=== PATIENT | female | born 1990 | race Caucasian/White ===

== ENCOUNTER 2016-07-30 10:49 | Emergency (ER) | payer OTHER ==
[2016-07-30] MEDS ORDERED: predniSONE TAB* 20 MG PO ONE (11:11)
[2016-07-30] MEDS ORDERED: diPHENhydraMINE PO* 50 MG PO ONE (11:11)
[2016-07-30 11:12] VITALS: BP 128/87
--- NOTE | 2016-07-30 11:19 | UC ---
Allergic Reaction HPI - HPI Summary HPI Summary: PT WOKE UP THIS MORNING WITH ITCHY BUMPY RASH ON CHEST AND FACE THAT HAS NOW RESOLVED. LEFT LOWER LIP FEELS NUMB BUT IS NOT SWOLLEN. NO FEVER. FELT SOME CHEST TIGHTNESS WHICH WAS IMPROVED AFTER USING HER INHALER BUT DENIES ANY ACTUAL RESPIRATORY DISTRESS. ATE AT [employer] LAST NIGHT BUT NO NEW FOODS OR OTHER EXPOSURES SHE IS AWARE OF. RECENTLY HAD DOSE OF NEURONTIN INCREASED TO ADD A PRN DAYTIME DOSE WHICH SHE DID TAKE YESTERDAY. - History of Current Complaint Stated Complaint: RASH SOB LIP NUMB Time Seen by Provider: 07/30/16 10:57 Hx Obtained From: Patient Hx Last Menstrual Period: April 13, 2016 Onset/Duration: Sudden Onset, Lasting Hours, Still Present - BUT IMPROVED Severity Initially: Moderate Severity Currently: Mild Pain Intensity: 0 Pain Scale Used: 0-10 Numeric Character: Pruritus, Hives Aggrevating Factor(s): Nothing Alleviating Factor(s): Other - SPONTANEOUS IMPROVEMENT Associated Signs And Symptoms: Positive: Negative - Allergies/Home Medications Allergies/Adverse Reactions: Allergies Allergy/AdvReac Type Severity Reaction Status Date / Time Lamotrigine [From Lamictal] Allergy Intermediate Rash Verified 03/06/16 13:00 ROBITUSSIN WITH CODEINE Allergy Severe Itching Uncoded 03/06/16 13:00 Home Medications: Home Medications Aspirin [Aspirin Adult Low Strengt] 81 mg PO DAILY 07/30/16 [History Confirmed 07/30/16] Folic Acid TAB* [Folvite TAB*] 1 mg PO DAILY 07/30/16 [History Confirmed ] PMH/Surg Hx/FS Hx/Imm Hx Endocrine History Of: Reports: Diabetes, Thyroid Disease, Hypothyroidism Denies: Hyperthyroidism, Dyslipidemia Cardiovascular History Of: Denies: Cardiac Disorders, Hypertension, Pacemaker/ICD, Myocardial Infarction , Congestive Heart Failure, Atrial Fibrillation, Deep Vein Thrombosis, Bleeding Disorders Respiratory History Of: Reports: Asthma - She does not use Proair which she has. Denies: COPD, Bronchitis, Pneumonia, Pulmonary Embolism GI/ History Of: Reports: Gastroesophageal Reflux, Ulcer - Gastric ulcer 4 years ago. Denies: Gastrointestinal Bleed, Gall Bladder Disease, Kidney Stones, Diverticulitis, Renal Disease, Urosepsis Neurological History Of: Denies: TIA, CVA, Dementia, Seizures, Migraine Psychological History Of: Reports: Anxiety, Depression - BIPOLAR DEPRESSION, Bipolar Disorder Denies: Schizophrenia, Post Traumatic Stress Disorder Cancer History Of: Denies: Lung Cancer, Colorectal Cancer, Breast Cancer, Prostate Cancer, Cervical Cancer Other History Of: Negative For: HIV, Hepatitis B, Hepatitis C, Anticoagulant Therapy - Surgical History Surgical History: Yes Surgery Procedure, Year, and Place: RIGHT Carpal Tunnel Surgery 09/2011 [facility]. RT THUMB Tendonitis 2004 [facility]. RT THUMB Tendonitis 2005 [facility]. Cyst removed left 2nd finger Feb 2015. Ex Lap - Family History Known Family History: Positive: Diabetes Negative: Cardiac Disease, Hypertension - Social History Alcohol Use: Occasionally Alcohol Amount: 1x month Substance Use Type: None Smoking Status (MU): Former Smoker Type: Cigarettes Amount Used/How Often: 4 CIGARETTES/DAY FOR 2 YRS Length of Time of Smoking/Using Tobacco: 2 YRS Have You Smoked in the Last Year: No When Did the Patient Quit Smoking/Using Tobacco: 2013 Household Exposure Type: Cigarettes - Immunization History Most Recent Influenza Vaccination: Most Recent Tetanus Shot: unknown Most Recent Pneumonia Vaccination: never Vaccination Up to Date: Yes Review of Systems Constitutional: Negative Skin: Rash Respiratory: Negative Cardiovascular: Negative Gastrointestinal: Negative All Other Systems Reviewed And Are Negative: Yes Physical Exam Triage Information Reviewed: Yes Appearance: Well-Appearing, No Pain Distress, Well-Nourished Vital Signs: Initial Vital Signs Pulse 95 07/30/16 11:05 Resp 16 07/30/16 11:05 BP 128/87 07/30/16 11:05 Pulse Ox 96 07/30/16 11:05 Vital Signs Reviewed: Yes Eyes: Positive: Conjunctiva Clear ENT: Positive: Hearing grossly normal, Pharynx normal, TMs normal, Other: - NO TONGUE OR LIP SWELLING Neck: Positive: Supple Respiratory Exam: Normal Cardiovascular Exam: Normal Abdomen Description: Positive: Soft Musculoskeletal: Positive: No Edema Psychological: Positive: Age Appropriate Behavior Skin: Negative: rashes Allergic Reaction Course/Dx - Differential Dx/Diagnosis Provider Diagnoses: ALLERGIC REACTION Discharge - Discharge Plan Condition: Stable Disposition: HOME Prescriptions: predniSONE TAB* [Deltasone TAB*] 50 mg PO DAILY #4 tab Patient Education Materials: General Allergic Reaction (ED) Forms: *Work Release Referrals: Tru Bran MD [Medical Doctor] - If Needed Additional Instructions: UNCERTAIN CAUSE OF YOUR ALLERGIC REACTION TODAY. POSSIBLY COULD BE NEURONTIN YOU CAN DEVELOP ALLERGY AT ANY TIME. DO NOT STOP THIS MEDICATION ABRUPTLY. IF YOU HAVE RECURRENT SYMPTOMS GO TO THE ER WITHOUT FAIL. CONSIDER EVALUATION BY AN COUNTY RECORDS MANAGEMENT OFFICER IF YOU HAVE RECURRENT SYMPTOMS. TAKE OTC ANTIHISTAMINE DAILY (CLARITIN (LORATADINE), ZYRTEC (CETIRIZINE) OR SHONA (FEXOFENADINE) IN THE MORNING, BENADRYL AT NIGHT) [facility] Address: [facility] [address], [place] [address] [facility] [address] [place] [address] [address] [place], [place] [address]
== END 2016-07-30 11:29 | disposition home or self-care (01) ==
LOC: UCEAST 10:49
DX: T78.40XA Allergy, unspecified, initial encounter (principal); X58.XXXA Exposure to other specified factors, initial encounter; Z87.891 Personal history of nicotine dependence
CPT/HCPCS: 99212; A9270-GY; G0463; J7512

== ENCOUNTER 2016-07-30 21:36 | Emergency (ER) | payer OTHER ==
--- NOTE | 2016-07-30 22:35 | RAD ---
INDICATION: Chest pain COMPARISON: May 20, 2012 TECHNIQUE: PA and lateral dual-energy views were obtained. FINDINGS: Bones/Soft Tissues: There are no acute bony findings. Cardiomediastinal: The cardiomediastinal silhouette is normal. Lungs: There are no infiltrates. Pleura: There are no pleural effusions. Other: None IMPRESSION: NO ACTIVE DISEASE.
--- NOTE | 2016-07-30 22:52 | ED ---
Babar Crews Billy, scribed for Edward Jeffery MD on 07/30/16 at 2149 . Shortness of Breath - HPI Summary HPI Summary: Patient is a 26 year-old female coming to [facility] from [facility] presenting with intermittent SOB starting approximately 1 hour ago. Patient also states that she has midsternal chest pain and back pain. Her symptoms began at rest while lying down, without any known cause. Pain is unaffected with deep breaths, although her SOB is worse when talking. She has had similar chest pain in the past. - History of Current Complaint Chief Complaint: EDShortnessOfBreath Time Seen by Provider: 07/30/16 21:43 Hx Obtained From: Patient Onset/Duration: Gradual Onset, Lasting Hours, Still Present Timing: Intermittent Episodes Lasting: Current Severity: Moderate Dyspnea At: Rest Aggrevating Factors: Recumbent Position Alleviating Factors: Nothing Associated Signs & Symptoms: Chest Pain Unrelated to Cough - Allergy/Home Medications Allergies/Adverse Reactions: Allergies Allergy/AdvReac Type Severity Reaction Status Date / Time Lamotrigine [From Lamictal] Allergy Intermediate Rash Verified 03/06/16 13:00 ROBITUSSIN WITH CODEINE Allergy Severe Itching Uncoded 03/06/16 13:00 PMH/Surg Hx/FS Hx/Imm Hx Endocrine/Hematology History: Reports: Hx Diabetes, Hx Thyroid Disease Denies: Hx Anticoagulant Therapy Cardiovascular History: Denies: Hx Congestive Heart Failure, Hx Deep Vein Thrombosis, Hx Hypertension , Hx Myocardial Infarction, Hx Pacemaker/ICD Respiratory History: Reports: Hx Asthma - She does not use Proair which she has. Denies: Hx Chronic Obstructive Pulmonary Disease (COPD), Hx Lung Cancer, Hx Pneumonia, Hx Pulmonary Embolism GI History: Reports: Hx Ulcer - Gastric ulcer 4 years ago. Denies: Hx Gall Bladder Disease, Hx Gastrointestinal Bleed, Hx Urosepsis History: Denies: Hx Kidney Stones, Hx Renal Disease Musculoskeletal History: Reports: Other Musculoskeletal History - HX OF LEFT ANKLE FX 2010 Sensory History: Reports: Hx Contacts or Glasses - BOTH, Denies: Hx Hearing Aid Opthamlomology History: Reports: Hx Contacts or Glasses - BOTH, Neurological History: Reports: Hx Headaches - FREQUENT Denies: Hx Dementia, Hx Migraine, Hx Seizures, Hx Transient Ischemic Attacks (TIA) Psychiatric History: Reports: Hx Anxiety, Hx Depression - BIPOLAR DEPRESSION, Hx Bipolar Disorder Denies: Hx Panic Disorder, Hx Schizophrenia - Surgical History Surgery Procedure, Year, and Place: RIGHT Carpal Tunnel Surgery 09/2011 [facility]. RT THUMB Tendonitis 2004 [facility]. RT THUMB Tendonitis 2005 [facility]. Cyst removed left 2nd finger Feb 2015. Ex Lap Hx Anesthesia Reactions: No Infectious Disease History: No Infectious Disease History: Denies: Hx Clostridium Difficile, Hx Hepatitis, Hx Human Immunodeficiency Virus (HIV), Hx of Known/Suspected MRSA, Hx Shingles, Hx Tuberculosis, Hx Known/ Suspected VRE, Hx Known/Suspected VRSA, History Other Infectious Disease, Traveled Outside the [place] in Last 30 Days - Family History Known Family History: Positive: Diabetes Negative: Cardiac Disease, Hypertension - Social History Alcohol Use: Occasionally Alcohol Amount: 1x month Substance Use Type: Reports: None Smoking Status (MU): Former Smoker Type: Cigarettes Amount Used/How Often: 4 CIGARETTES/DAY FOR 2 YRS Length of Time of Smoking/Using Tobacco: 2 YRS Have You Smoked in the Last Year: No Review of Systems Positive: Chest Pain Positive: Shortness Of Breath Positive: Other - back pain All Other Systems Reviewed And Are Negative: Yes Physical Exam Triage Information Reviewed: Yes Vital Signs On Initial Exam: Initial Vitals Temp Pulse Resp BP Pulse Ox 96.7 F 103 20 126/89 97 07/30/16 21:39 07/30/16 21:39 07/30/16 21:39 07/30/16 21:39 07/30/16 21:39 Vital Signs Reviewed: Yes Appearance: Positive: No Pain Distress, Obese Skin: Positive: Warm Eyes: Positive: JUNIOR ENT: Positive: Hearing grossly normal Neck: Positive: Supple Respiratory/Lung Sounds: Positive: Clear to Auscultation, Breath Sounds Present Cardiovascular: Positive: RRR Abdomen Description: Positive: Nontender, Soft Bowel Sounds: Positive: Present Musculoskeletal: Positive: Strength/ROM Intact Neurological: Positive: Sensory/Motor Intact, Alert, Oriented to Person Place, Time Psychiatric: Positive: Affect/Mood Appropriate Diagnostics - Vital Signs Vital Signs Temp Pulse Resp BP Pulse Ox 07/30/16 21:39 96.7 F 103 20 126/89 97 - Laboratory Lab Statement: Any lab studies that have been ordered have been reviewed, and results considered in the medical decision making process. - Radiology CXR Xray Interpretation: No Acute Changes Radiology Interpretation Completed By: Radiologist - EKG 2144 EKG Interpretation: NSR 89 bpm, no ST elevation Re-Evaluation - Re-Evaluation First Eval Change: Improved Course/Dx - Diagnoses Provider Diagnoses: Dyspnea Discharge - Discharge Plan Condition: Stable Disposition: HOME Patient Education Materials: Dyspnea (ED) Referrals: Tru Bran MD [Primary Care Provider] - The documentation as recorded by the Babar rasheed Billy accurately reflects the service I personally performed and the decisions made by me, Edward Jeffery MD.
[2016-07-30 23:04] VITALS: BP 116/79
== END 2016-07-30 23:04 | disposition home or self-care (01) ==
LOC: ED 21:36
DX: R06.00 Dyspnea, unspecified (principal); R07.9 Chest pain, unspecified; R06.02 Shortness of breath; Z87.891 Personal history of nicotine dependence; M54.9 Dorsalgia, unspecified
CPT/HCPCS: 71020; 93005; 99282

== ENCOUNTER 2016-09-08 02:17 | Emergency (ER) | payer OTHER ==
[2016-09-08] MEDS ORDERED: Ketorolac INJ* 60 MG/2 ML VIAL IM ONE (03:13)
--- NOTE | 2016-09-08 04:09 | ED ---
Babar Crews Billy, scribed for Edward Jeffery MD on 09/08/16 at 0309 . Back Pain - HPI Summary HPI Summary: Patient is a 26 y/o female coming to [facility] for evaluation of constant back pain for the last 6 hours. Severity 10/10. She denies any recent injury or trauma, and she states that the pain began suddenly, with no known cause. She has taken OTC pain medication and applied heating pads without improvement. Pain is worse with inspiration. Patient has a history of arthritis in the lower back, but she says the pain has never been this bad. - History of Current Complaint Chief Complaint: EDBackInjuryPain Stated Complaint: BACK PAIN Time Seen by Provider: 09/08/16 03:06 Hx Obtained From: Patient Hx Last Menstrual Period: April 13, 2016 Onset/Duration: Sudden Onset, Lasting Hours, Still Present Timing: Constant Back Pain Location: Is Discrete @ - low back Severity Initially: Moderate Severity Currently: Moderate Pain Intensity: 10 Pain Scale Used: 0-10 Numeric Alleviating Symptom(s): Nothing - Allergies/Home Medications Allergies/Adverse Reactions: Allergies Allergy/AdvReac Type Severity Reaction Status Date / Time Lamotrigine [From Lamictal] Allergy Intermediate Rash Verified 09/08/16 02:23 ROBITUSSIN WITH CODEINE Allergy Severe Itching Uncoded 09/08/16 02:23 PMH/Surg Hx/FS Hx/Imm Hx Endocrine/Hematology History: Reports: Hx Diabetes, Hx Thyroid Disease Denies: Hx Anticoagulant Therapy Cardiovascular History: Denies: Hx Congestive Heart Failure, Hx Deep Vein Thrombosis, Hx Hypertension , Hx Myocardial Infarction, Hx Pacemaker/ICD Respiratory History: Reports: Hx Asthma - She does not use Proair which she has. Denies: Hx Chronic Obstructive Pulmonary Disease (COPD), Hx Lung Cancer, Hx Pneumonia, Hx Pulmonary Embolism GI History: Reports: Hx Ulcer - Gastric ulcer 4 years ago. Denies: Hx Gall Bladder Disease, Hx Gastrointestinal Bleed, Hx Urosepsis History: Denies: Hx Kidney Stones, Hx Renal Disease Musculoskeletal History: Reports: Other Musculoskeletal History - HX OF LEFT ANKLE FX 2010 Sensory History: Reports: Hx Contacts or Glasses - BOTH, Denies: Hx Hearing Aid Opthamlomology History: Reports: Hx Contacts or Glasses - BOTH, Neurological History: Reports: Hx Headaches - FREQUENT Denies: Hx Dementia, Hx Migraine, Hx Seizures, Hx Transient Ischemic Attacks (TIA) Psychiatric History: Reports: Hx Anxiety, Hx Depression - BIPOLAR DEPRESSION, Hx Bipolar Disorder Denies: Hx Panic Disorder, Hx Schizophrenia - Surgical History Surgery Procedure, Year, and Place: RIGHT Carpal Tunnel Surgery 09/2011 [facility]. RT THUMB Tendonitis 2004 [facility]. RT THUMB Tendonitis 2005 [facility]. Cyst removed left 2nd finger Feb 2015. Ex Lap Hx Anesthesia Reactions: No Infectious Disease History: No Infectious Disease History: Denies: Hx Clostridium Difficile, Hx Hepatitis, Hx Human Immunodeficiency Virus (HIV), Hx of Known/Suspected MRSA, Hx Shingles, Hx Tuberculosis, Hx Known/ Suspected VRE, Hx Known/Suspected VRSA, History Other Infectious Disease, Traveled Outside the [place] in Last 30 Days - Family History Known Family History: Positive: Diabetes Negative: Cardiac Disease, Hypertension - Social History Alcohol Use: Occasionally Alcohol Amount: 1x month Substance Use Type: Reports: None Smoking Status (MU): Former Smoker Type: Cigarettes Amount Used/How Often: 4 CIGARETTES/DAY FOR 2 YRS Length of Time of Smoking/Using Tobacco: 2 YRS Have You Smoked in the Last Year: No Review of Systems Negative: Fever Positive: Other - back pain All Other Systems Reviewed And Are Negative: Yes Physical Exam Triage Information Reviewed: Yes Vital Signs On Initial Exam: Initial Vitals Temp Pulse Resp BP Pulse Ox 96.7 F 96 16 120/91 99 09/08/16 02:19 09/08/16 02:19 09/08/16 02:19 09/08/16 02:19 09/08/16 02:19 Vital Signs Reviewed: Yes Appearance: Positive: Pain Distress - mild discomfort, Thin Skin: Positive: Warm Head/Face: Positive: Normal Head/Face Inspection Eyes: Positive: JUNIOR ENT: Positive: Hearing grossly normal Neck: Positive: Supple, Nontender Respiratory/Lung Sounds: Positive: Breath Sounds Present Cardiovascular: Positive: RRR Abdomen Description: Positive: Nontender, Soft Bowel Sounds: Positive: Present Musculoskeletal: Positive: Strength/ROM Intact Neurological: Positive: Sensory/Motor Intact, Alert, Oriented to Person Place, Time Diagnostics - Vital Signs Vital Signs Temp Pulse Resp BP Pulse Ox 09/08/16 02:19 96.7 F 96 16 120/91 99 - Laboratory Lab Statement: Any lab studies that have been ordered have been reviewed, and results considered in the medical decision making process. - Radiology CXR Xray Interpretation: No Acute Changes Radiology Interpretation Completed By: ED Physician Re-Evaluation - Re-Evaluation First Eval Change: Improved Back Pain Course/Dx - Diagnoses Provider Diagnoses: Back pain Discharge - Discharge Plan Condition: Improved Disposition: HOME Patient Education Materials: Back Pain (ED) Referrals: Tru Bran MD [Primary Care Provider] - The documentation as recorded by the Babar rasheed Billy accurately reflects the service I personally performed and the decisions made by me, Edward Jeffery MD.
[2016-09-08 04:28] VITALS: BP 106/67
--- NOTE | 2016-09-08 07:52 | RAD ---
INDICATION: Pleuritic chest pain COMPARISON: Most recent comparison chest x-ray dated July 30, 2016 TECHNIQUE: PA and lateral views of the chest were obtained. FINDINGS: The heart and mediastinum are normal in size and contour. The lungs are grossly clear. There is no evidence of large pleural effusion. Visualized bones are normal for the patient's age. There is no radiographic evidence of free air beneath the diaphragm IMPRESSION: No radiographic evidence of acute cardiopulmonary disease.
== END 2016-09-08 04:26 | disposition home or self-care (01) ==
LOC: ED 02:17
DX: M54.5 Low back pain (principal); Z87.891 Personal history of nicotine dependence
CPT/HCPCS: 71020; 96372; 99282; J1885

== ENCOUNTER 2016-10-15 11:25 | Day surgery (SDC) | payer OTHER ==
[~2016-10-15 11:25] MED LIST: Buffered Lidocaine 1% SYRIN* 3 ML/SYR SYRINGE INTRADERM ONE; Famotidine IV* 10 MG/ML 2 ML (20 mg) IV ONE; Metoclopramide TAB* 10 MG PO ONE
[2016-10-15] MEDS ORDERED: Famotidine IV* 10 MG/ML 2 ML (20 mg) ONE (11:28)
[2016-10-15] MEDS ORDERED: Metoclopramide TAB* 10 MG ONE (11:28)
[2016-10-15 11:37] LABS: UR Preg Kit Lot# 6030156
[2016-10-15 11:38] LABS: Manual Entry Verification AS; UR Preg Internal Control QC Line Present
[2016-10-15] MEDS ORDERED: Lidocaine 2% PF * 5 ML VIAL ONE (14:11)
[2016-10-15] MEDS ORDERED: Dexamethasone IV* 4 MG/ML 1 ML (4 MG) ONE (14:11)
[2016-10-15] MEDS ORDERED: Ondansetron INJ* 2 MG/ML VIAL ONE (14:11)
[2016-10-15] MEDS ORDERED: Propofol* 10 MG/ML 20 ML BTL IV PUSH ONE (14:11)
[2016-10-15] MEDS ORDERED: KETAMINE HCL* 50 MG/ML 10 ML VIAL ONE (14:11)
[2016-10-15] MEDS ORDERED: fentaNYL* 50 MCG/ML 2 ML VIAL (100 MCG VIAL) ONE ×2 (14:11→15:47)
[2016-10-15] MEDS ORDERED: Midazolam* 1 MG/ML 5 ML VIAL (5 MG) ONE (14:11)
[2016-10-15] MEDS ORDERED: Lidocaine 4% TOPICAL* 50 ML TOP.SOLN ONE (14:15)
[2016-10-15] MEDS ORDERED: Oxymetazoline 0.05% NASAL SPR* 15 ML BTL ONE (14:15)
[2016-10-15] MEDS ORDERED: Gelatin ADSORBABLE (OPHTH)* OPHTH.FILM ONE (14:18)
[2016-10-15] MEDS ORDERED: Gelfoam 12-7 ADSORBABL SPONGE* 1 EA SPONGE ONE ×2 (14:18→15:12)
[2016-10-15] MEDS ORDERED: Lidocaine 2% EPI 1:200000 MPF* 20 ML VIAL ONE (14:22)
[2016-10-15] MEDS ORDERED: Ondansetron INJ* 2 MG/ML VIAL IV PRN (15:05)
[2016-10-15] MEDS ORDERED: oxyCODONE/Acetamin 5/325 MG* TAB PO PRN (15:05)
[2016-10-15] MEDS ORDERED: oxyCODONE/Acetamin 5/325 MG* TAB ONE (15:47)
[2016-10-15] MEDS: fentaNYL* 50 MCG/ML 2 ML VIAL (100 MCG VIAL) IV PRN ×2 (15:48→15:57)
[2016-10-15 16:54] VITALS: BP 119/80
--- NOTE | 2016-10-15 22:14 | OP ---
DATE OF OPERATION: 10/15/16 - [facility] DATE OF : 86 SURGEON: Anam Lewis MD ANESTHESIOLOGIST: Reese Bergeron MD ANESTHESIA: General PRE-OP DIAGNOSES: Chronic sinusitis; hypertrophied nasal turbinate; hugo bullosa, left side. POST-OP DIAGNOSES: Chronic sinusitis; hypertrophied nasal turbinate; hugo bullosa, left side. OPERATIVE PROCEDURE: Bilateral videoendoscopic maxillary antrostomy and left hugo bullosa resection. BRIEF HISTORY: This 26-year-old female with recurring chronic sinus symptoms, chronic sinusitis, markedly enlarged hugo bullosa, left side with narrowing bilaterally, elected for surgical management having failed medical management that had included nasal steroids. DESCRIPTION OF PROCEDURE: The patient was taken to the operating room. General anesthetic was given. The patient was intubated with LMA. Nose was decongested with Afrin placed pledgets. Subsequently, 2% Lidocaine with epinephrine was infiltrated in the middle turbinate on both sides, the uncinate region on both sides. We turned our attention to the left side. The uncinate process was identified after resecting the hugo bullosa. Once adequate resection, however, maintaining the medial surface of the turbinate, the antrostomy was enlarged and the microshaver was used to remove the antral opening uncinate region. Once this was adequately done, the enlargement of the antrum was carried out using microshaver. There was no evidence of any significant mucosal abnormality in the antrum. Gelfilm and Gelfoam was used as a spacer between the middle turbinate and lateral nasal wall. Right side was again similarly, uncinate process was removed and micro shaved away. The antrostomy was enlarged. Airway was packed with Gelfilm and Gelfoam as a spacer between middle turbinate lateral nasal value. The patient was then awakened, extubated, and sent to recovery room in stable condition. Instrument and sponge count correct. Blood loss minimal. [id number]/[facility] #: [id number] MTDD
== END 2016-10-15 16:54 | disposition home or self-care (01) ==
LOC: OR 11:25
PROVIDERS: ATTEND Otolaryngology
DX: J32.0 Chronic maxillary sinusitis (principal); J31.0 Chronic rhinitis; J34.3 Hypertrophy of nasal turbinates; G47.33 Obstructive sleep apnea (adult) (pediatric); E03.9 Hypothyroidism, unspecified; J45.909 Unspecified asthma, uncomplicated; E78.5 Hyperlipidemia, unspecified
CPT/HCPCS: 81025; A9270-GY; J1100; J2250; J2405; J2704; J3010

== ENCOUNTER 2016-10-16 17:23 | Emergency (ER) | payer OTHER ==
[2016-10-16 17:49] VITALS: BP 134/97
--- NOTE | 2016-10-16 18:29 | UC ---
Skin Complaint HPI - HPI Summary HPI Summary: had nasal surgery yesterday---today noticed a red area that was warm above her right breast on her chest wall---both of her upper arms feel warm and a firm tender area at 4:00 on right breast - History of Current Complaint Chief Complaint: UCRash Time Seen by Provider: 10/16/16 18:11 Stated Complaint: RASH Hx Obtained From: Patient Hx Last Menstrual Period: 10/02/16 ?: No Onset/Duration: Sudden Onset, Lasting Days - 1, Still Present Skin Exposure Onset/Duration: Days Ago - 1 day ago possibly to cardiac electrodes Timing: Constant Onset Severity: Moderate Current Severity: Moderate Pain Intensity: 3 Pain Scale Used: 0-10 Numeric Location: Discrete Character: Redness Aggravating: Nothing Alleviating: Nothing Related History: Possible Reaction to: Latex - Allergy/Home Medications Allergies/Adverse Reactions: Allergies Allergy/AdvReac Type Severity Reaction Status Date / Time Lamotrigine [From Lamictal] Allergy Intermediate Rash Verified 10/15/16 11:39 ROBITUSSIN WITH CODEINE Allergy Severe Itching Uncoded 10/15/16 11:39 Home Medications: Home Medications Acetaminophen-Caffeine [Excedrin Tension Headache 500-65 mg] 1 tab PO 10/16/16 [ History] Cetirizine* [ZyrTEC 10 MG TAB*] 10 mg PO DAILY 10/16/16 [History Confirmed 10/16] Fenofibrate [Tricor] 48 mg PO 10/16/16 [History] Lurasidone HCl [Latuda] 60 mg PO 10/16/16 [History] Review of Systems Constitutional: Negative Skin: Rash - as described Eyes: Negative ENT: Negative Respiratory: Negative Cardiovascular: Negative Gastrointestinal: Negative Genitourinary: Negative Motor: Negative Neurovascular: Negative Musculoskeletal: Negative Neurological: Negative Psychological: Negative All Other Systems Reviewed And Are Negative: Yes PMH/Surg Hx/FS Hx/Imm Hx Previously Healthy: No Endocrine History Of: Reports: Thyroid Disease - HYPOTHYROID, Hypothyroidism Denies: Diabetes - INSULIN RESISTANT TAKES METFORMIN, Hyperthyroidism, Dyslipidemia Cardiovascular History Of: Denies: Cardiac Disorders, Hypertension, Pacemaker/ICD, Myocardial Infarction , Congestive Heart Failure, Atrial Fibrillation, Deep Vein Thrombosis, Bleeding Disorders Respiratory History Of: Reports: Asthma - She does not use Proair which she has. Denies: COPD, Bronchitis, Pneumonia, Pulmonary Embolism GI/ History Of: Reports: Gastroesophageal Reflux, Ulcer - Gastric ulcer 4 years ago. Denies: Gastrointestinal Bleed, Gall Bladder Disease, Kidney Stones, Diverticulitis, Renal Disease, Urosepsis Neurological History Of: Denies: TIA, CVA, Dementia, Seizures, Migraine Psychological History Of: Reports: Anxiety, Depression - BIPOLAR DEPRESSION, Bipolar Disorder Denies: Schizophrenia, Post Traumatic Stress Disorder Cancer History Of: Denies: Lung Cancer, Colorectal Cancer, Breast Cancer, Prostate Cancer, Cervical Cancer Other History Of: Negative For: HIV, Hepatitis B, Hepatitis C, Anticoagulant Therapy - Surgical History Surgical History: Yes Surgery Procedure, Year, and Place: RIGHT Carpal Tunnel Surgery 09/2011 [facility]. RT THUMB Tendonitis 2004 [facility]. RT THUMB Tendonitis 2005 [facility]. Cyst removed left 2nd finger Feb 2015. Ex Lap, sinus surgery - Family History Known Family History: Positive: Diabetes Negative: Cardiac Disease, Hypertension - Social History Occupation: Unemployed Lives: With Family Alcohol Use: Occasionally Alcohol Amount: 1x month Substance Use Type: None Smoking Status (MU): Former Smoker Type: Cigarettes Amount Used/How Often: 1/2 ppd FOR 8YRS Length of Time of Smoking/Using Tobacco: 2 YRS Have You Smoked in the Last Year: No When Did the Patient Quit Smoking/Using Tobacco: 2012 Household Exposure Type: Cigarettes - Immunization History Most Recent Influenza Vaccination: Most Recent Tetanus Shot: unknown Most Recent Pneumonia Vaccination: never Vaccination Up to Date: Yes Physical Exam Triage Information Reviewed: Yes Appearance: Well-Appearing, No Pain Distress, Well-Nourished Vital Signs: Initial Vital Signs Temp 98.1 F 10/16/16 17:46 Pulse 90 10/16/16 17:46 Resp 18 10/16/16 17:46 BP 134/97 10/16/16 17:46 Pulse Ox 98 10/16/16 17:46 Vital Signs Reviewed: Yes Eye Exam: Normal Eyes: Positive: Conjunctiva Clear ENT Exam: Normal ENT: Positive: Normal ENT inspection, Hearing grossly normal, Pharynx normal, TMs normal. Negative: Nasal congestion, Nasal drainage, Tonsillar swelling, Tonsillar exudate, Trismus, Muffled/hoarse voice Dental Exam: Normal Neck exam: Normal Neck: Positive: Supple, Nontender, No Lymphadenopathy Respiratory Exam: Normal Respiratory: Positive: Chest non-tender, Lungs clear, Normal breath sounds, No respiratory distress, No accessory muscle use Cardiovascular Exam: Normal Cardiovascular: Positive: RRR, No Murmur, Pulses Normal, Brisk Capillary Refill Musculoskeletal Exam: Normal Musculoskeletal: Positive: Strength Intact, ROM Intact, No Edema Neurological Exam: Normal Neurological: Positive: Alert, Muscle Tone Normal Psychological Exam: Normal Skin Exam: Normal Skin: Positive: rashes - as described---pt reports it was not present yesterday Course/Dx - Course Course Of Treatment: Doxycycline, warm compress to breast follow with Dr. Burnette on Thursday return should sx worsen in any way - Differential Diagnoses - Skin Complaint Differential Diagnoses: Cellulitis, Contact Dermatitis, Local Allergic Reaction - Diagnoses Provider Diagnoses: Cellulitis/localized reaction Discharge - Discharge Plan Condition: Stable Disposition: HOME Prescriptions: DOXYcycline CAP(*) [DOXYcycline 100MG CAP(*)] 100 mg PO BID #20 cap Fluconazole [Diflucan 150 MG (NF)] 150 mg PO ONCE PRN #1 tab PRN Reason: vaginal yeast SX Patient Education Materials: Breast Mass (ED), Warm Compress or Soak (ED) Referrals: Gordo Kidd MD [Primary Care Provider] - 3 Days
== END 2016-10-16 18:33 | disposition home or self-care (01) ==
LOC: UCEAST 17:23
DX: N61.1 Abscess of the breast and nipple (principal); R21 Rash and other nonspecific skin eruption; E03.9 Hypothyroidism, unspecified; F31.9 Bipolar disorder, unspecified; K21.9 Gastro-esophageal reflux disease without esophagitis; J45.909 Unspecified asthma, uncomplicated; Z88.8 Allergy status to other drugs, medicaments and biological substances
CPT/HCPCS: 99212; G0463

== ENCOUNTER 2016-11-04 12:52 | Emergency (ER) | payer OTHER ==
[2016-11-04 13:12] VITALS: BP 130/92
--- NOTE | 2016-11-04 14:16 | UC ---
Alicia Crews Claudia, scribed for Yoko Barrow MD on 11/04/16 at 1323 . General HPI - HPI Summary HPI Summary: 26 year old female presents to the [facility] via car post episode of "Sz". Per pt she was at work when she think she experienced an absent Sz. Pt states that she was sitting down on a couch listening to people at work today and she "zoned-out". Pt denies any similar episodes in the past. She notes the intermittent episode ( 1) only lasted a few seconds. Pt notes that she can lose interest in conversation but notes this episode is different. Pt notes that the episode was not witnessed. Pt also secondarily admits to sore throat sudden onset early this am, waking her up from sleep. Pt denies urinary Sx, dysuria, bowel or bladder incontinence,fever. Pt does admit to chronic back pain as well. Pt notes last menstrual cycle 32 days ago and that it is very unlikely for her to be . PMHX: NO PMHX of Sz. PCP: Dr. Kidd - History of Current Complaint Chief Complaint: UCGeneralIllness Stated Complaint: POSS SEIZURE Hx Obtained From: Patient Onset/Duration: Sudden Onset, Lasting Hours, Still Present Timing: Intermittent Episodes Lasting: - few seconds Associated Signs & Symptoms: Positive: Other - episode of "seizure"( per pt). Negative: Dysuria, Fever - Allergy/Home Medications Allergies/Adverse Reactions: Allergies Allergy/AdvReac Type Severity Reaction Status Date / Time Lamotrigine [From Lamictal] Allergy Intermediate Rash Verified 10/15/16 11:39 ROBITUSSIN WITH CODEINE Allergy Severe Itching Uncoded 10/15/16 11:39 PMH/Surg Hx/FS Hx/Imm Hx Previously Healthy: Yes Endocrine History Of: Reports: Thyroid Disease - HYPOTHYROID, Hypothyroidism Denies: Diabetes - INSULIN RESISTANT TAKES METFORMIN, Hyperthyroidism, Dyslipidemia Cardiovascular History Of: Denies: Cardiac Disorders, Hypertension, Pacemaker/ICD, Myocardial Infarction , Congestive Heart Failure, Atrial Fibrillation, Deep Vein Thrombosis, Bleeding Disorders Respiratory History Of: Reports: Asthma - She does not use Proair which she has. Denies: COPD, Bronchitis, Pneumonia, Pulmonary Embolism GI/ History Of: Reports: Gastroesophageal Reflux, Ulcer - Gastric ulcer 4 years ago. Denies: Gastrointestinal Bleed, Gall Bladder Disease, Kidney Stones, Diverticulitis, Renal Disease, Urosepsis Neurological History Of: Denies: TIA, CVA, Dementia, Seizures, Migraine Psychological History Of: Reports: Anxiety, Depression - BIPOLAR DEPRESSION, Bipolar Disorder Denies: Schizophrenia, Post Traumatic Stress Disorder Cancer History Of: Denies: Lung Cancer, Colorectal Cancer, Breast Cancer, Prostate Cancer, Cervical Cancer Other History Of: Negative For: HIV, Hepatitis B, Hepatitis C, Anticoagulant Therapy - Surgical History Surgical History: Yes Surgery Procedure, Year, and Place: RIGHT Carpal Tunnel Surgery 09/2011 [facility]. RT THUMB Tendonitis 2004 [facility]. RT THUMB Tendonitis 2005 [facility]. Cyst removed left 2nd finger Feb 2015. Ex Lap, sinus surgery - Family History Known Family History: Positive: Diabetes Negative: Cardiac Disease, Hypertension - Social History Occupation: Employed Full-time Lives: With Family Alcohol Use: Occasionally Alcohol Amount: 1x month Substance Use Type: None Smoking Status (MU): Former Smoker Type: Cigarettes Amount Used/How Often: 1/2 ppd FOR 8YRS Length of Time of Smoking/Using Tobacco: 2 YRS Have You Smoked in the Last Year: No When Did the Patient Quit Smoking/Using Tobacco: 2012 Household Exposure Type: Cigarettes - Immunization History Most Recent Influenza Vaccination: Most Recent Tetanus Shot: unknown Most Recent Pneumonia Vaccination: never Vaccination Up to Date: Yes Review of Systems Constitutional: Negative - NO FEVER Skin: Negative Eyes: Negative ENT: Sore Throat Respiratory: Negative Cardiovascular: Negative Gastrointestinal: Negative Genitourinary: Negative - NO URINARY SX REPORTED INCLUDING BOWEL AND BALDDER INCONTINENCE Motor: Negative Neurovascular: Negative Musculoskeletal: Negative Neurological: Other - "ABSENT SZ" EPISODE (PER PT) HAS RESOLVED AND SHE HAS NOT EXPERIENCED ANOTHER SINCE Psychological: Negative All Other Systems Reviewed And Are Negative: Yes Physical Exam Triage Information Reviewed: Yes Vital Signs: Initial Vital Signs Temp 98.7 F 11/04/16 12:57 Pulse 95 11/04/16 12:57 Resp 18 11/04/16 12:57 BP 130/92 11/04/16 12:57 Pulse Ox 99 11/04/16 12:57 - Additional Comments * Appearance: Well-Nourished, TEARFUL * Eye Exam: Normal * ENT Exam: POSTERIOR PHARYNX ERYTHEMATOUS, TMS DULL AND RETRACTED * Neck: Normal, No adenopathy appreciated * Respiratory Exam: Normal, no dyspnea, no tachypnea, normal respiratory rate * Chest non-tender, Lungs clear, Normal breath sounds, No respiratory distress , No accessory muscle use * Cardiovascular Exam: Normal * Cardiovascular: Heart rate regular, good general skin color, good capillary refill * RRR, No Murmur, Pulses Normal - sitting up. heart rate correlates w left radial pulse (if relevant), Brisk Capillary Refill * Abdominal Exam: Normal * Abdomen Description: Nontender, No Organomegaly, Soft * Bowel Sounds: Present * Musculoskeletal Exam: Normal * Musculoskeletal: Strength Intact * Neurological Exam: Normal: nonfocal, grossly intact * Psychological Exam: Normal: conversing easily and appropriately * Skin Exam: Normal: no visible or reported rash Diagnostics - EKG Cardiac Rate: NL - NSR: 106 BEATS/MIN NE 102 QTC 418 Course/Dx - Course Course Of Treatment: No new problems while in [facility]. 14:15 s/o Dr. Maldonado. Pending ancillaries (spec influenza), urine dip. - Differential Dx - Multi-Symptom Provider Diagnoses: see Dr. Maldonado s/o note - Physician Notifications Instructed by Provider To: Other - sign-out to Dr. Maldonado waiting rapid strep and influenza. Discharge - Discharge Plan Condition: Stable Disposition: HOME Discharge Disposition Comment: Sign-out to Dr. Maldonado at 2:00pm waiting for rapid strep and influenza Referrals: Gordo Kidd MD [Primary Care Provider] - The documentation as recorded by the Alicia rasheed Claudia accurately reflects the service I personally performed and the decisions made by me, Yoko Barrow MD.
== END 2016-11-04 15:19 | disposition home or self-care (01) ==
LOC: UCEAST 12:52
DX: G40.A09 Absence epileptic syndrome, not intractable, without status epilepticus (principal); Z32.02 Encounter for pregnancy test, result negative; E03.9 Hypothyroidism, unspecified; J45.909 Unspecified asthma, uncomplicated; K21.9 Gastro-esophageal reflux disease without esophagitis; F41.9 Anxiety disorder, unspecified; F33.9 Major depressive disorder, recurrent, unspecified; Z87.891 Personal history of nicotine dependence
CPT/HCPCS: 81003; 84702; 87502; 87651; 93005; 99211; G0463

== ENCOUNTER 2016-11-12 17:26 | Emergency (ER) | payer OTHER ==
--- NOTE | 2016-11-12 23:04 | UC ---
Progress - Progress Note Progress Note: Pt stated she couldn't wait any longer. I spoke with pt and she stated her SO had a respiratory infection, and 11/04/16 she was seen her at and told it was a virus. States she is still coughing and wheezing at times. States she cannot wait to have a full evaluation and treatment. Ambulatory at discharge with resps unlabored with her male SO.
== END 2016-11-12 18:40 | disposition left against medical advice (07) ==
LOC: UCEAST 17:26
DX: Z53.21 Procedure and treatment not carried out due to patient leaving prior to being seen by health care provider (principal)

== ENCOUNTER 2016-12-15 09:18 | Emergency (ER) | payer OTHER ==
--- NOTE | 2016-12-15 10:08 | UC ---
Lower Extremity/Ankle HPI - HPI Summary HPI Summary: walked two miles in flip flops---swelling and bruising left 2nd toe - History of Current Complaint Chief Complaint: UCLowerExtremity Stated Complaint: TOE INJURY Time Seen by Provider: 12/15/16 10:01 Hx Obtained From: Patient Hx Last Menstrual Period: 12/09/16 ?: No Onset/Duration: Sudden Onset, Lasting Days Severity Initially: Moderate Severity Currently: Moderate Pain Intensity: 6 Pain Scale Used: 0-10 Numeric Aggravating Factor(s): Standing, Ambulation Alleviating Factor(s): Rest Able to Bear Weight: Yes - Allergies/Home Medications Allergies/Adverse Reactions: Allergies Allergy/AdvReac Type Severity Reaction Status Date / Time Lamotrigine [From Lamictal] Allergy Intermediate Rash Verified 12/15/16 09:38 ROBITUSSIN WITH CODEINE Allergy Severe Itching Uncoded 12/15/16 09:38 PMH/Surg Hx/FS Hx/Imm Hx Previously Healthy: Yes Endocrine History: Hypothyroidism Respiratory History: Asthma GI/ History: Gastroesophageal Reflux Psychological History: Schizophrenia Other History Of: Negative For: HIV, Hepatitis B, Hepatitis C, Anticoagulant Therapy - Surgical History Surgical History: Yes Surgery Procedure, Year, and Place: RIGHT Carpal Tunnel Surgery 09/2011 [facility]. RT THUMB Tendonitis 2004 [facility]. RT THUMB Tendonitis 2005 [facility]. Cyst removed left 2nd finger Feb 2015. Ex Lap, sinus surgery - Family History Known Family History: Positive: Diabetes Negative: Cardiac Disease, Hypertension - Social History Occupation: Disabled Lives: With Family Alcohol Use: Occasionally Alcohol Amount: 1x month Substance Use Type: None Smoking Status (MU): Former Smoker Type: Cigarettes Amount Used/How Often: 1/2 ppd FOR 8YRS Length of Time of Smoking/Using Tobacco: 2 YRS Have You Smoked in the Last Year: No When Did the Patient Quit Smoking/Using Tobacco: 2012 Household Exposure Type: Cigarettes - Immunization History Most Recent Influenza Vaccination: 2016 Most Recent Tetanus Shot: unknown Most Recent Pneumonia Vaccination: never Vaccination Up to Date: Yes Review of Systems Constitutional: Negative Skin: Bruising - left second toe Eyes: Negative ENT: Negative Respiratory: Negative Cardiovascular: Negative Gastrointestinal: Negative Genitourinary: Negative Motor: Negative Neurovascular: Negative Musculoskeletal: Arthralgia - left second toe Neurological: Negative Psychological: Negative All Other Systems Reviewed And Are Negative: Yes Physical Exam Triage Information Reviewed: Yes Appearance: Well-Appearing, No Pain Distress, Obese Vital Signs: Initial Vital Signs Temp 98.7 F 12/15/16 09:40 Pulse 75 12/15/16 09:40 Resp 16 12/15/16 09:40 BP 126/89 12/15/16 09:40 Pulse Ox 98 12/15/16 09:40 Vital Signs Reviewed: Yes Eye Exam: Normal Eyes: Positive: Conjunctiva Clear ENT Exam: Normal ENT: Positive: Normal ENT inspection, Hearing grossly normal. Negative: Nasal congestion, Nasal drainage, Trismus, Muffled/hoarse voice Neck exam: Normal Neck: Positive: Supple, Nontender Respiratory Exam: Normal Respiratory: Positive: Chest non-tender, No respiratory distress, No accessory muscle use Cardiovascular Exam: Normal Cardiovascular: Positive: RRR, Pulses Normal, Brisk Capillary Refill Musculoskeletal Exam: Other Musculoskeletal: Positive: Strength Intact, ROM Limited @ - left 2nd toe, Edema @ - left second toe Neurological Exam: Normal Neurological: Positive: Alert, Muscle Tone Normal Psychological Exam: Normal Skin Exam: Normal Diagnostics - Radiology No standard instances Xray Interpretation: No Acute Changes Radiology Interpretation Completed By: Radiologist Lower Extremity Course/Dx - Course Course Of Treatment: rice, postop shoe, ibuprofen follow with pcp - Differential Dx/Diagnosis Differential Diagnosis/HQI/PQRI: Cellulitis, Contusion, Fracture (Closed), Sprain, Strain Provider Diagnoses: contusion left second toe Discharge - Discharge Plan Condition: Stable Disposition: HOME Patient Education Materials: Ibuprofen (By mouth), Foot Contusion (ED), RICE Therapy (ED) Referrals: Gordo Kidd MD [Primary Care Provider] - If Needed
--- NOTE | 2016-12-15 10:35 | RAD ---
INDICATION: Left second toe injury COMPARISON: None TECHNIQUE: AP, lateral, and oblique views were obtained. FINDINGS: The bony structures, joint spaces, and soft tissues are normal for age. IMPRESSION: NEGATIVE EXAMINATION
[2016-12-15 11:34] VITALS: BP 123/87
== END 2016-12-15 11:25 | disposition home or self-care (01) ==
LOC: UCEAST 09:18
DX: S90.122A Contusion of left lesser toe(s) without damage to nail, initial encounter (principal); X50.3XXA Overexertion from repetitive movements, initial encounter; Y93.01 Activity, walking, marching and hiking; Y92.9 Unspecified place or not applicable; Y99.9 Unspecified external cause status
CPT/HCPCS: 99213; G0463

== ENCOUNTER 2017-05-12 04:39 | Emergency (ER) | payer SELFPAY ==
[2017-05-12] MEDS ORDERED: Morphine INJ* 4 MG/ML 1 ML CARPUJECT IV ONE (04:58)
[2017-05-12] MEDS ORDERED: NS 0.9% 1000 ML* 1,000 ML IV ONE (04:58)
[2017-05-12] MEDS ORDERED: Ondansetron INJ* 2 MG/ML VIAL IV ONE (04:58)
[2017-05-12 05:52] LABS: Hematocrit 38 % (35-47); Hemoglobin 12.9 g/dl (12.0-16.0); Mean Corpuscular HGB Conc 34 g/dl (31-36); Mean Corpuscular Hemoglobin 29 pg (27-31); Mean Corpuscular Volume 85 fL (80-97); Mean Platelet Volume 8 um3 (7.4-10.4); Red Blood Count 4.42 10^6/ul (4.0-5.4); Red Cell Distribution Width 13 % (10.5-15)
[2017-05-12 06:15] LABS: Albumin 4.3 g/dL (3.2-5.2); BUN/Creatinine Ratio 13.6 (8-20); Calcium 8.9 mg/dL (8.6-10.3); EGFR African American 97.7 (>60); Globulin 2.7 g/dL (2-4); Potassium 3.8 mmol/L (3.5-5.0); Total Bilirubin 0.3 mg/dL (0.2-1.0)
[2017-05-12 06:16] LABS: Troponin I 0.02 ng/mL (<0.04)
[2017-05-12] MEDS ORDERED: Iodixanol* (CONTRAST) 320 MG/ML 100 ML SDV IV ONE (06:31)
[2017-05-12 07:35] LABS: Urine Bilirubin Negative (Negative); Urine Glucose Negative (Negative); Urine Nitrite Negative (Negative)
--- NOTE | 2017-05-12 08:39 | RAD ---
HISTORY: Abdominal COMPARISONS: Similar examination December 06, 2012 TECHNIQUE: Multiple transverse and longitudinal ultrasound images were obtained of the right upper quadrant. FINDINGS: Examination is somewhat limited by overlying bowel gas. LIVER: The liver exhibits mostly homogenous increased echogenicity. There are no definite focal liver masses. Liver is normal in size.. Normal hepatic and portal venous blood flow is duplicated with color flow imaging. There is no gross intrahepatic biliary duct dilatation. GALLBLADDER AND EXTRAHEPATIC BILIARY DUCT: At the neck of the gallbladder there is a shadowing echogenic stone measuring 1.6 cm in greatest dimension that appears to be immobile. There is no pericholecystic fluid or gallbladder wall thickening. The common bile duct measures a maximum diameter of 5 mm. PANCREAS: The portions of the pancreas not obscured by bowel gas are normal in appearance. RIGHT KIDNEY: The right kidney is normal in size, morphology and echogenicity. AORTA AND IVC: The visualized portions are normal in appearance and not pathologically dilated. IMPRESSION: INTERVAL APPEARANCE OF AN IMMOBILE 1.6 CM GALLSTONE IN THE PRESENCE OF A TOP NORMAL BUT NOT PATHOLOGICALLY ENLARGED COMMON BILE DUCT. IF THERE IS CLINICAL EVIDENCE OF BILIARY OBSTRUCTION FURTHER CHARACTERIZATION COULD BE MADE WITH A HIDA SCAN.
--- NOTE | 2017-05-12 09:28 | RAD ---
INDICATION: RIGHT lower quadrant pain postprandial. Nausea and vomiting. Assess for appendicitis. COMPARISON: RIGHT lower quadrant ultrasound of the same date. December 01, 2012 CT. TECHNIQUE: Multidetector CT images were obtained from the lung bases to the ischial tuberosities with 125 mL Visipaque 320 IV and oral contrast. Multiplanar reformation. REPORT: Minimal dependent basilar atelectasis. Diffuse fatty infiltration of the liver with focal sparing at the gallbladder fossa. Approximate 1 cm hyperenhancing lesion at the dome of the RIGHT posterior hepatic segment is only mildly enlarged compared with the 2013 exam without concern. Smaller hyperenhancing lesion at the RIGHT anterior hepatic segment at the dome is unchanged without concern. Negative for biliary dilatation. No CT abnormality of the gallbladder, pancreas, spleen. Negative for CT abnormality of the upper GI or small bowel. Well-visualized retrocecal appendix while prominent in size is without evidence for mural thickening or periappendiceal inflammatory change. Foci of gas are noted within the lumen of the appendix from the proximal segment through the tip. No appendicolith visualized. Negative for CT abnormality of the colon. Negative for ascites, free air, hernias. Normal adrenal glands. Symmetric nephrograms and pyelograms. Duplicated LEFT renal collecting system. Negative for hydronephrosis or focal renal lesions. No CT abnormality of the nondilated ureters. Unremarkable urinary bladder as well as the anteverted uterus and RIGHT adnexal region. 1.6 cm maximum dimension peripherally enhancing centrally hypodense LEFT ovarian lesion new compared with the prior exam markedly low suspicion based on small size likely a follicular cyst. Negative for lymphadenopathy. Normal diameter abdominal aorta and iliac arteries. Physiologic distention of the IVC. Negative for suspicious osseous lesions. IMPRESSION: 1. Fatty infiltration of the liver. 2. No evidence for appendicitis. 3. No pathologic process of the alimentary tract evident. 4. 1.6 cm maximum dimension thin-walled peripherally enhancing centrally hypodense LEFT ovarian lesion new compared with the prior exam markedly low suspicion based on small size likely a follicular cyst. 5. Negative for ascites.
[2017-05-12 09:39] VITALS: BP 146/80
--- NOTE | 2017-05-12 22:23 | ED ---
Yazmin Crews Gabriel, scribed for Omar Rey on 05/12/17 at 0526 . Abdominal Pain/Female - HPI Summary HPI Summary: This patient is a 27 year old F presenting to [facility] with a chief complaint of ABD pain since last night. The patient rates the pain 10/10 in severity. Symptoms aggravated by PO intake. Patient reports vomiting and back pain. - History of Current Complaint Chief Complaint: EDAbdPain Stated Complaint: VOMMITING/ABD PAIN Time Seen by Provider: 05/12/17 04:52 Hx Obtained From: Patient Hx Last Menstrual Period: 12/09/16 Onset/Duration: Lasting Days - 1, Still Present Timing: Constant Severity Currently: Severe Pain Intensity: 10 Pain Scale Used: 0-10 Numeric Radiates: Yes Radiates to: Back Aggravating Factor(s): Food Associated Signs and Symptoms: Positive: Back Pain, Vomiting Allergies/Adverse Reactions: Allergies Allergy/AdvReac Type Severity Reaction Status Date / Time Lamotrigine [From Lamictal] Allergy Intermediate Rash Verified 12/15/16 09:38 ROBITUSSIN WITH CODEINE Allergy Severe Itching Uncoded 12/15/16 09:38 PMH/Surg Hx/FS Hx/Imm Hx Previously Healthy: No Endocrine/Hematology History: Reports: Hx Thyroid Disease - HYPOTHYROID Denies: Hx Anticoagulant Therapy, Hx Diabetes - INSULIN RESISTANT TAKES METFORMIN Cardiovascular History: Denies: Hx Congestive Heart Failure, Hx Deep Vein Thrombosis, Hx Hypertension , Hx Myocardial Infarction, Hx Pacemaker/ICD Respiratory History: Reports: Hx Asthma, Hx Sleep Apnea Denies: Hx Chronic Obstructive Pulmonary Disease (COPD), Hx Lung Cancer, Hx Pneumonia, Hx Pulmonary Embolism GI History: Reports: Hx Gastroesophageal Reflux Disease, Hx Ulcer - Gastric ulcer 4 years ago. Denies: Hx Gall Bladder Disease, Hx Gastrointestinal Bleed, Hx Urosepsis History: Denies: Hx Kidney Stones, Hx Renal Disease Musculoskeletal History: Reports: Hx Arthritis - OSTEOARTHRITIS IN NECK AND BACK , Other Musculoskeletal History - HX OF LEFT ANKLE FX 2010 Sensory History: Reports: Hx Contacts or Glasses - BOTH, will use glasses day of surgery Denies: Hx Hearing Aid Opthamlomology History: Reports: Hx Contacts or Glasses - BOTH, will use glasses day of surgery Neurological History: Reports: Hx Headaches - 2X A WEEK Denies: Hx Dementia, Hx Migraine, Hx Seizures, Hx Transient Ischemic Attacks (TIA) Psychiatric History: Reports: Hx Anxiety, Hx Depression - BIPOLAR DEPRESSION, Hx Bipolar Disorder Denies: Hx Panic Disorder, Hx Schizophrenia - Surgical History Surgery Procedure, Year, and Place: RIGHT Carpal Tunnel Surgery 09/2011 [facility]. RT THUMB Tendonitis 2004 [facility]. RT THUMB Tendonitis 2005 [facility]. Cyst removed left 2nd finger Feb 2015. Ex Lap, sinus surgery Hx Anesthesia Reactions: No Infectious Disease History: No Infectious Disease History: Denies: Hx Clostridium Difficile, Hx Hepatitis, Hx Human Immunodeficiency Virus (HIV), Hx of Known/Suspected MRSA, Hx Shingles, Hx Tuberculosis, Hx Known/ Suspected VRE, Hx Known/Suspected VRSA, History Other Infectious Disease, Traveled Outside the [place] in Last 30 Days - Family History Known Family History: Positive: Diabetes Negative: Cardiac Disease, Hypertension - Social History Alcohol Use: Occasionally Alcohol Amount: 1x month Substance Use Type: Reports: None Smoking Status (MU): Former Smoker Type: Cigarettes Amount Used/How Often: 1/2 ppd FOR 8YRS Length of Time of Smoking/Using Tobacco: 2 YRS Have You Smoked in the Last Year: No Review of Systems Positive: Abdominal Pain, Vomiting Positive: Other - back pain All Other Systems Reviewed And Are Negative: Yes Physical Exam - Summary Physical Exam Summary: Appearance: Well appearing, no pain distress Skin: warm, dry, reflects adequate perfusion Head/face: normal Eyes: EOMI, JUNIOR ENT: normal Neck: supple, non-tender Respiratory: CTA, breath sounds present Cardiovascular: RRR, pulses symmetrical Abdomen: tenderness in RLQ and RUQ , soft Bowel: present Musculoskeletal: normal, strength/ROM intact Neuro: normal, sensory motor intact, A&Ox3 Triage Information Reviewed: Yes Vital Signs On Initial Exam: Initial Vitals Temp Pulse Resp BP Pulse Ox 97.5 F 81 16 151/81 98 05/12/17 04:41 05/12/17 04:41 05/12/17 04:41 05/12/17 04:41 05/12/17 04:41 Vital Signs Reviewed: Yes - Prosper Coma Scale Coma Scale Total: 15 Diagnostics - Vital Signs Vital Signs Temp Pulse Resp BP Pulse Ox 05/12/17 04:41 97.5 F 81 16 151/81 98 - Laboratory Lab Results: Lab Results 05/12/17 05/12/17 05/12/17 Range/Units 05:30 05:30 05:30 WBC 12.0 H (3.5-10.8) 10^3/ul RBC 4.42 (4.0-5.4) 10^6/ul Hgb 12.9 (12.0-16.0) g/dl Hct 38 (35-47) % MCV 85 (80-97) fL MCH 29 (27-31) pg MCHC 34 (31-36) g/dl RDW 13 (10.5-15) % Plt Count 363 (150-450) 10^3/ul MPV 8 (7.4-10.4) um3 Neut % (Auto) 73.5 (38-83) % Lymph % (Auto) 17.6 L (25-47) % Phillips % (Auto) 7.0 (1-9) % Eos % (Auto) 1.5 (0-6) % Baso % (Auto) 0.4 (0-2) % Absolute Neuts (auto) 8.8 H (1.5-7.7) 10^3/ul Absolute Lymphs (auto) 2.1 (1.0-4.8) 10^3/ul Absolute Monos (auto) 0.8 (0-0.8) 10^3/ul Absolute Eos (auto) 0.2 (0-0.6) 10^3/ul Absolute Basos (auto) 0 (0-0.2) 10^3/ul Absolute Nucleated RBC 0.01 10^3/ul Nucleated RBC % 0 INR (Anticoag Therapy) 0.94 (0.89-1.11) APTT 29.6 (26.0-36.3) seconds Sodium 134 (133-145) mmol/L Potassium 3.8 (3.5-5.0) mmol/L Chloride 104 (101-111) mmol/L Carbon Dioxide 22 (22-32) mmol/L Anion Gap 8 (2-11) mmol/L BUN 12 (6-24) mg/dL Creatinine 0.88 (0.51-0.95) mg/dL Est GFR ( Amer) 97.7 (>60) Est GFR (Non-Af Amer) 76.0 (>60) BUN/Creatinine Ratio 13.6 (8-20) Glucose 108 H (70-100) mg/dL Calcium 8.9 (8.6-10.3) mg/dL Total Bilirubin 0.30 (0.2-1.0) mg/dL AST 20 (13-39) U/L ALT 23 (7-52) U/L Alkaline Phosphatase 60 (34-104) U/L Troponin I 0.02 (<0.04) ng/mL Total Protein 7.0 (6.4-8.9) g/dL Albumin 4.3 (3.2-5.2) g/dL Globulin 2.7 (2-4) g/dL Albumin/Globulin Ratio 1.6 (1-3) Lipase 33 (11.0-82.0) U/L Urine Color Urine Appearance Urine pH (5-9) Ur Specific Franklin (1.010-1.030) Urine Protein (Negative) Urine Ketones (Negative) Urine Blood (Negative) Urine Nitrate (Negative) Urine Bilirubin (Negative) Urine Urobilinogen (Negative) Ur Leukocyte Esterase (Negative) Urine Glucose (Negative) 05/12/17 Range/Units 07:14 WBC (3.5-10.8) 10^3/ul RBC (4.0-5.4) 10^6/ul Hgb (12.0-16.0) g/dl Hct (35-47) % MCV (80-97) fL MCH (27-31) pg MCHC (31-36) g/dl RDW (10.5-15) % Plt Count (150-450) 10^3/ul MPV (7.4-10.4) um3 Neut % (Auto) (38-83) % Lymph % (Auto) (25-47) % Phillips % (Auto) (1-9) % Eos % (Auto) (0-6) % Baso % (Auto) (0-2) % Absolute Neuts (auto) (1.5-7.7) 10^3/ul Absolute Lymphs (auto) (1.0-4.8) 10^3/ul Absolute Monos (auto) (0-0.8) 10^3/ul Absolute Eos (auto) (0-0.6) 10^3/ul Absolute Basos (auto) (0-0.2) 10^3/ul Absolute Nucleated RBC 10^3/ul Nucleated RBC % INR (Anticoag Therapy) (0.89-1.11) APTT (26.0-36.3) seconds Sodium (133-145) mmol/L Potassium (3.5-5.0) mmol/L Chloride (101-111) mmol/L Carbon Dioxide (22-32) mmol/L Anion Gap (2-11) mmol/L BUN (6-24) mg/dL Creatinine (0.51-0.95) mg/dL Est GFR ( Amer) (>60) Est GFR (Non-Af Amer) (>60) BUN/Creatinine Ratio (8-20) Glucose (70-100) mg/dL Calcium (8.6-10.3) mg/dL Total Bilirubin (0.2-1.0) mg/dL AST (13-39) U/L ALT (7-52) U/L Alkaline Phosphatase (34-104) U/L Troponin I (<0.04) ng/mL Total Protein (6.4-8.9) g/dL Albumin (3.2-5.2) g/dL Globulin (2-4) g/dL Albumin/Globulin Ratio (1-3) Lipase (11.0-82.0) U/L Urine Color Colorless Urine Appearance Clear Urine pH 7.0 (5-9) Ur Specific Franklin 1.017 (1.010-1.030) Urine Protein Negative (Negative) Urine Ketones Negative (Negative) Urine Blood Negative (Negative) Urine Nitrate Negative (Negative) Urine Bilirubin Negative (Negative) Urine Urobilinogen Negative (Negative) Ur Leukocyte Esterase Negative (Negative) Urine Glucose Negative (Negative) Result Diagrams: 05/12/17 05:30 05/12/17 05:30 Lab Statement: Any lab studies that have been ordered have been reviewed, and results considered in the medical decision making process. Abdominal Pain Fem Course/Dx - Course Course Of Treatment: This patient was signed out to Dr. Cruz, pending disposition, awaiting CT's. The patient was seen for abdominal pain. - Diagnoses Differential Diagnosis: Positive: Appendicitis, Diverticulitis, Gall Bladder Disease, Peptic Ulcer Disease, , Renal Colic Provider Diagnoses: Cholelithiasis, Abdominal pain Discharge - Discharge Plan Condition: Stable Disposition: HOME Patient Education Materials: Gallstones (ED) Referrals: Berry Diop MD [Medical Doctor] - 3 Days Gordo Kidd MD [Primary Care Provider] - If Needed Additional Instructions: Follow up with Dr. Diop, surgery, in the next three days. Return to the emergency department for any new or worsening symptoms. The documentation as recorded by the Yazmin rasheed Gabriel accurately reflects the service I personally performed and the decisions made by , Omar Rey.
== END 2017-05-12 09:37 | disposition home or self-care (01) ==
LOC: ED 04:39
DX: K80.20 Calculus of gallbladder without cholecystitis without obstruction (principal); R10.31 Right lower quadrant pain; R10.11 Right upper quadrant pain; M54.9 Dorsalgia, unspecified; R11.10 Vomiting, unspecified; E11.9 Type 2 diabetes mellitus without complications; Z79.84 Long term (current) use of oral hypoglycemic drugs; E03.9 Hypothyroidism, unspecified; J45.909 Unspecified asthma, uncomplicated; K21.9 Gastro-esophageal reflux disease without esophagitis; F41.9 Anxiety disorder, unspecified; F31.9 Bipolar disorder, unspecified; Z87.891 Personal history of nicotine dependence
CPT/HCPCS: 36415; 74177; 76705; 80053; 81003; 83690; 84484; 85025; 85610; 85730; 96361; 96374; 96375; 99283; J2270; J2405; Q9967

== ENCOUNTER 2017-06-13 09:32 | Emergency (ER) | payer MEDICAID ==
--- OUTSIDE RECORDS SUMMARY | 2017-06-13 09:39 | XMS REPORT ---
:1990 External Reference #:[id number] Author Organization [employer] Address [address] [address] Phone [phone] Care Team Providers Name Role Phone Gordo Kidd MD Primary Care Physician Unavailable Payers Type Date Identification Numbers Payment Provider Subscriber Medicaid Policy Number: [id number] Medicaid Ladan Gomez Group Name: 1 1 [address] PayID: [id number] [place] [address] Problems Description No Information Social History Type Date Description Comments Smoking Patient has never smoked Allergies, Adverse Reactions, Alerts Date Description Reaction Status Severity Comments 06/04/2017 Lamotrigine active 06/04/2017 Guaifenesin itching active can take meds seperately not mixed Medications Medication Date Status Form Strength Qnty SIG Indications Ordering Provider Oxycodone-Acetam 06/11/ Active Tablets 5-325mg 15tabs 1-2 tabs Berry rosas 2017 every 6 [place], hours as , FACS needed for pain Omeprazole 0000/ Active Capsules 40mg TK 1 C PO Unknown [address] DR qd Gabapentin 00/ Active Capsules 100mg TK 1 To 2 Unknown 0000 CS PO bid Pra Latuda 00/ Active Tablets 120mg TK 1 T Unknown 0000 qpm After Dinner Acetaminophen/Co 00/ Active Tablets 300-30mg TK 1 T PO Unknown deine Phosphate 0000 bid Levothyroxine / Active Tablets 88mcg TK 1 T PO Unknown Sodium 0000 qd Fluoxetine HCL / Active Capsules 10mg TK One C Unknown 0000 PO qam Fenofibrate / Active Tablets 48mg TK 1 T PO Unknown 0000 qd Metformin HCL 00/ Active Tablets 500mg TK 1 T PO Unknown 0000 bid Zyrtec Allergy / Active Capsules 10mg take one Unknown 0000 tablet by mouth in the evening Vital Signs Date Vital Result Comment 06/11/2017 Heart Rate 72 /min BP Systolic 126 mmHg BP Diastolic 82 mmHg Respiratory Rate 16 /min Body Temperature 98.7 F 06/04/2017 Height 63 inches 5'3" Weight 220.00 lb Heart Rate 62 /min BP Systolic 140 mmHg BP Diastolic 80 mmHg Respiratory Rate 16 /min Body Temperature 98.3 F BMI (Body Mass Index) 39.0 kg/m2 Results Description No Information Procedures Description No Information Plan of Care Future Appointment(s):07/02/2017 11:15 am - MORTEZA Salgado at [facility]06/24/2017 4:00 pm - MORTEZA Salgado at [facility]06/24/2017 4:00 pm - Jigar Chicas MD at [facility]
--- OUTSIDE RECORDS SUMMARY | 2017-06-13 09:39 | XMS REPORT ---
:1990 External Reference #:[id number] Author Organization [employer] Address [address] [facility] [address] [place] [address] Phone [phone] Care Team Providers Name Role Phone Gordo Kidd MD Primary Care Physician Unavailable Payers Type Date Identification Numbers Payment Provider Subscriber Medicaid Policy Number: [id number] Medicaid Ladan Gomez Group Name: 1 1 [address] PayID: [id number] [place] [address] Problems Description No Information Social History Type Date Description Comments Smoking Patient has never smoked Allergies, Adverse Reactions, Alerts Date Description Reaction Status Severity Comments 06/04/2017 Lamotrigine active 06/04/2017 Guaifenesin itching active can take meds seperately not mixed Medications Medication Date Status Form Strength Qnty SIG Indications Ordering Provider Omeprazole 0 Active Capsules 40mg TK 1 C PO Unknown 000 DR qd Gabapentin Active Capsules 100mg TK 1 To 2 Unknown 000 CS PO bid Pra Latuda 0 Active Tablets 120mg TK 1 T Unknown 000 qpm After Dinner Acetaminophen/Co 0 Active Tablets 300-30mg TK 1 T PO Unknown deine Phosphate 000 bid Levothyroxine 0 Active Tablets 88mcg TK 1 T PO Unknown Sodium 000 qd Fluoxetine HCL 0 Active Capsules 10mg TK One C Unknown 000 PO qam Fenofibrate 0 Active Tablets 48mg TK 1 T PO Unknown 000 qd Metformin HCL 0 Active Tablets 500mg TK 1 T PO Unknown 000 bid Zyrtec Allergy Active Capsules 10mg take one Unknown 000 tablet by mouth in the evening Vital Signs Date Vital Result Comment 06/04/2017 Height 63 inches 5'3" Weight 220.00 lb Heart Rate 62 /min BP Systolic 140 mmHg BP Diastolic 80 mmHg Respiratory Rate 16 /min Body Temperature 98.3 F BMI (Body Mass Index) 39.0 kg/m2 Results Description No Information Procedures Description No Information Plan of Care Future Appointment(s):07/02/2017 11:15 am - MORTEZA Salgado at [facility]06/11/2017 1:00 pm - MORTEZA Salgado at [facility]06/24/2017 4:00 pm - MORTEZA Salgado at [facility]06/24/2017 4:00 pm - Jigar Chicas MD at [facility]06/04/2017 - Jigar Chicas [id number] Calculus of gallbladder w chronic cholecyst w/o obstructionFollow up:operating roomInstructions:Limit fatty foods until 2 weeks after surgery
[2017-06-13 10:12] VITALS: BP 116/76
--- NOTE | 2017-06-13 10:47 | UC ---
Throat Pain/Nasal Julito HPI - HPI Summary HPI Summary: 27 Y/O female presents with upper respiratory symptoms x 1 day. C/O chills, cough, sinus pain and congestion. Denies body aches, nausea, vomiting and dyspnea. States history of frequent sinus infections with sinus surgery in October 2016. Medical history and medications reviewed at this visit. - History of Current Complaint Chief Complaint: UCGeneralIllness Stated Complaint: SINUS COMPLAINT Time Seen by Provider: 06/13/17 10:25 Hx Obtained From: Patient Hx Last Menstrual Period: 12/09/16 Onset/Duration: Sudden Onset Severity: Moderate Pain Intensity: 5 Pain Scale Used: 0-10 Numeric Cough: Nonproductive Associated Signs & Symptoms: Positive: Sinus Discomfort - Epiglottits Risk Factors Epiglottis Risk Factors: Negative - Allergies/Home Medications Allergies/Adverse Reactions: Allergies Allergy/AdvReac Type Severity Reaction Status Date / Time Lamotrigine [From Lamictal] Allergy Intermediate Rash Verified 06/13/17 10:12 ROBITUSSIN WITH CODEINE Allergy Severe Itching Uncoded 06/13/17 10:12 Home Medications: Home Medications FLUoxetine CAP* [PROzac CAP*] 10 mg PO DAILY 06/13/17 [History Confirmed ] PMH/Surg Hx/FS Hx/Imm Hx Previously Healthy: Yes Endocrine History: Hypothyroidism GI/ History: Gastroesophageal Reflux Psychological History: Bipolar Disorder Other History Of: Negative For: HIV, Hepatitis B, Hepatitis C, Anticoagulant Therapy - Surgical History Surgical History: Yes Surgery Procedure, Year, and Place: RIGHT Carpal Tunnel Surgery 09/2011 [facility]. RT THUMB Tendonitis 2004 [facility]. RT THUMB Tendonitis 2005 [facility]. Cyst removed left 2nd finger Feb 2015. Ex Lap, sinus surgery - Family History Known Family History: Positive: Diabetes Negative: Cardiac Disease, Hypertension - Social History Alcohol Use: Occasionally Alcohol Amount: 1x month Substance Use Type: None Smoking Status (MU): Former Smoker Type: Cigarettes Amount Used/How Often: 1/2 ppd FOR 8YRS Length of Time of Smoking/Using Tobacco: 2 YRS Have You Smoked in the Last Year: No When Did the Patient Quit Smoking/Using Tobacco: 2012 Household Exposure Type: Cigarettes - Immunization History Most Recent Influenza Vaccination: 2016 Most Recent Tetanus Shot: unknown Most Recent Pneumonia Vaccination: never Vaccination Up to Date: Yes Review of Systems Constitutional: Chills Skin: Negative Eyes: Negative ENT: Sinus Congestion, Sinus Pain/Tenderness Respiratory: Cough Cardiovascular: Negative Gastrointestinal: Negative Genitourinary: Negative Motor: Negative Neurovascular: Negative Musculoskeletal: Negative Neurological: Negative Psychological: Negative Is Patient Immunocompromised?: No All Other Systems Reviewed And Are Negative: Yes Physical Exam Triage Information Reviewed: Yes Appearance: Well-Appearing Vital Signs: Initial Vital Signs Temp 98.3 F 06/13/17 10:09 Pulse 85 06/13/17 10:09 Resp 16 06/13/17 10:09 BP 116/76 06/13/17 10:09 Pulse Ox 99 06/13/17 10:09 Vital Signs Reviewed: Yes Eye Exam: Normal ENT: Positive: Nasal congestion, TMs normal, Sinus tenderness Neck exam: Normal Respiratory Exam: Normal Respiratory: Positive: Lungs clear, Normal breath sounds, No respiratory distress Cardiovascular Exam: Normal Cardiovascular: Positive: RRR Abdominal Exam: Normal Bowel Sounds: Positive: Present Musculoskeletal Exam: Normal Neurological Exam: Normal Psychological Exam: Normal Skin Exam: Normal Throat Pain/Nasal Course/Dx - Differential Dx/Diagnosis Differential Diagnosis/HQI/PQRI: Sinusitis, URI Provider Diagnoses: Sinusitis Discharge - Discharge Plan Condition: Stable Disposition: HOME Patient Education Materials: Sinusitis (ED) Referrals: Gordo Kidd MD [Primary Care Provider] - Additional Instructions: Take antibiotics as directed. Increase fluids and get plenty of rest. Follow up with your ENT physician for frequent sinus symptoms. Return to Urgent Care or return to your primary medical provider if symptoms do not improve or worsen over the next week.
== END 2017-06-13 10:58 | disposition home or self-care (01) ==
LOC: UCEAST 09:32
DX: J32.9 Chronic sinusitis, unspecified (principal); Z87.891 Personal history of nicotine dependence; Z88.8 Allergy status to other drugs, medicaments and biological substances; F31.9 Bipolar disorder, unspecified
CPT/HCPCS: 99212; G0463

== ENCOUNTER 2017-06-24 09:27 | Day surgery (SDC) | payer MEDICAID ==
--- NOTE | 2017-06-12 06:48 | HP ---
AMENDED REPORT NOW INCLUDES COSIGNER DESIGNATION - ESIGNED BEFORE ADJUSTMENTS CC: Gordo Kidd MD * HISTORY AND PHYSICAL: DATE OF ADMISSION/SURGERY: 06/24/17 ATTENDING PHYSICIAN: Jigar Chicas MD * (DICTATED BY MORTEZA JUÁREZ) PRIMARY CARE PHYSICIAN: Gordo Kidd MD CHIEF COMPLAINT: Right upper quadrant abdominal pain. HISTORY OF PRESENT ILLNESS: Ladan is a pleasant 27-year-old female who was seen in the emergency room about a month ago with complaints of epigastric and right upper quadrant abdominal pain. The patient notes that her pain started abruptly right after she had dinner. She was evaluated in the emergency room and had laboratory workup that came back with normal white count and liver function tests. She had a CT scan of the abdomen and pelvis followed by a right upper quadrant ultrasound that revealed evidence of immobile gallbladder stone measuring 1.6 cm, but there was no clinical evidence of any biliary obstruction or acute cholecystitis. The patient eventually was stabilized in the emergency room and was sent home. She followed up with us 2 weeks later when she saw Dr. Chicas in the office to discuss gallbladder surgery. She described occasional right upper quadrant and epigastric abdominal pain usually postprandial, but a lot less severe than the initial episode she had about a month ago. She denied any nausea, vomiting and changes in the bowel habits, or changes in the color or stool or urine. She otherwise is a relatively healthy young female with no significant past medical history. Given her ongoing symptoms, she was considered to be a good candidate for laparoscopic cholecystectomy to be performed on a later date. PAST MEDICAL HISTORY: Significant for gastroesophageal reflux disease, absent seizure, polycystic ovarian syndrome, hypothyroidism, and seasonal allergies. PAST SURGICAL HISTORY: Significant for a history of 2 diagnostic laparoscopies in the remote past due to a diagnosis of polycystic ovarian syndrome. CURRENT MEDICATIONS: Her medications at home include: 1. Omeprazole 40 mg 1 tablet daily. 2. Gabapentin 100 mg 1 to 2 tablets b.i.d. as needed. 3. Latuda 120 mg 1 tablet after dinner daily. 4. Acetaminophen/codeine 1 tablet p.o. b.i.d. as needed for pain. 5. Levothyroxine 88 mcg 1 tablet daily. 6. Fluoxetine 10 mg p.o. daily. 7. Fenofibrate 48 mg p.o. daily. 8. Metformin 500 mg 1 tablet p.o. b.i.d. 9. Zyrtec Allergy 10 mg 1 tablet q.h.s. ALLERGIES: She is allergic to LAMICTAL and ROBITUSSIN with CODEINE. FAMILY HISTORY: She denies any family history of gallbladder disease or colorectal malignancies. SOCIAL HISTORY: The patient is . She is currently employed. She is an occasional smoker who smokes on average half a pack per week. She drinks alcohol occasionally and caffeine intake is minimal. REVIEW OF SYSTEMS: See HPI, otherwise negative. She denies any headache, dizziness, blurred vision, or double vision. No chest pain, palpitation, or shortness of breath. No sore throat, cough, wheezing, or dyspnea. She denies any back pain, flank pain, hematuria, dysuria, or urinary frequency. She admits to intermittent epigastric and right upper quadrant abdominal pain, but denies any nausea, vomiting, changes in her bowel habits, or changes in the color of her stool or urine. No fever, chills, jaundice, or recent weight loss. PHYSICAL EXAMINATION GENERAL: She is a pleasant, obese, healthy-appearing female, in no acute distress or discomfort at the time of her visit. VITAL SIGNS: Revealed a blood pressure of 126/82, pulse of 72, respirations of 16, and temperature of 98.7. HEENT: Sclerae anicteric. PERRLA. EOMs intact. Head is normocephalic, atraumatic. Oropharynx is pink, moist with no exudate. NECK: Supple. Trachea midline. No cervical adenopathy or thyromegaly. LUNGS: Clear to auscultation bilaterally. No rales, wheezes, or rhonchi. HEART: Regular rate and rhythm. Normal S1 and S2 without rubs, murmurs, or gallops. BACK: Normal curvature. No CVA tenderness. BREASTS: Exam deferred at this time. ABDOMEN: Soft and nondistended. There is mild epigastric and right upper quadrant tenderness with deep palpation. No guarding, rigidity, or rebound tenderness noted. There is no hernias, masses, or hepatosplenomegaly. An old surgical scar around the umbilicus from prior diagnostic laparoscopy was noted and well healed. Eubanks sign was negative. EXTREMITIES: Without cyanosis, clubbing, or edema. RECTAL: Exam deferred at this time. NEUROLOGIC: Grossly intact. IMPRESSION: A 27-year-old female with signs and symptoms as well as sonographic findings consistent with chronic cholecystitis with cholelithiasis. PLAN: I went on and discussed with the patient proceeding with laparoscopic cholecystectomy to be performed by Dr. Chicas on a later date. The rationale, indications, risks and benefits of surgery were discussed with her today. Risks include but not limited to infection, bleeding, or injury to adjacent structures. She appears to understand and wishes to proceed with surgery as outlined. We will follow her up 1 week after surgery. MORTEZA JUÁREZ [id number]/[facility] #: [id number] JERRY
[~2017-06-24 09:27] MED LIST changes: +Buffered Lidocaine 0.9% SYRIN* 5 ML/SYR SYRINGE INTRADERM ONE; -Buffered Lidocaine 1% SYRIN* 3 ML/SYR SYRINGE INTRADERM ONE; +Dexamethasone IV* 4 MG/ML 1 ML (4 MG) IV SLOW PU ONE; -Metoclopramide TAB* 10 MG PO ONE
[2017-06-24] MEDS ORDERED: Buffered Lidocaine 0.9% SYRIN* 5 ML/SYR SYRINGE ONE ×2 (09:39)
[2017-06-24] MEDS ORDERED: Dexamethasone IV* 4 MG/ML 1 ML (4 MG) ONE ×2 (09:39)
[2017-06-24] MEDS ORDERED: ceFAZolin 2 GM PREMIX (*) 2 GM/50 ML BAG IVPB ONE ×2 (09:39)
[2017-06-24] MEDS ORDERED: Famotidine IV* 10 MG/ML 2 ML (20 mg) ONE ×2 (09:39)
[2017-06-24] MEDS ORDERED: Bupivacaine 0.25% SDV* 30 ML ONE ×2 (10:59)
[2017-06-24] MEDS ORDERED: Lidocaine 2% PF * 5 ML VIAL ONE ×2 (11:11)
[2017-06-24] MEDS ORDERED: Mivacurium Chloride* 20 MG/10 ML VIAL IV ONE ×2 (11:11)
[2017-06-24] MEDS ORDERED: Midazolam* 1 MG/ML 2 ML VIAL (2 MG) ONE ×2 (11:11)
[2017-06-24] MEDS ORDERED: Propofol* 10 MG/ML 20 ML BTL IV PUSH ONE ×2 (11:11)
[2017-06-24] MEDS ORDERED: fentaNYL* 50 MCG/ML 2 ML VIAL (100 MCG VIAL) ONE ×6 (11:12→11:51)
[2017-06-24] MEDS ORDERED: Naloxone* 0.4 MG/ML 1 ML VIAL IV PRN (11:14)
[2017-06-24] MEDS ORDERED: oxyCODONE/Acetamin 5/325 MG* TAB PO PRN (11:14)
[2017-06-24] MEDS ORDERED: PROCHLORPERAZINE INJ 5 MG/ML 2 ML VIAL IV PRN (11:14)
[2017-06-24] MEDS ORDERED: HYDROcodone/ACETAMIN 5-325 MG* 1 TAB PO PRN (11:14)
[2017-06-24] MEDS ORDERED: fentaNYL* 50 MCG/ML 2 ML VIAL (100 MCG VIAL) IV PRN (11:14)
[2017-06-24] MEDS ORDERED: Ketorolac INJ* 30 MG/ML 1 ML VIAL ONE ×2 (11:39)
[2017-06-24] MEDS ORDERED: Ondansetron INJ* 2 MG/ML VIAL ONE ×2 (12:01)
--- NOTE | 2017-06-24 12:12 | BRIEFOPN ---
Brief Operative Note - Surgery Procedures: Procedures Pre-OP Diagnoses: chronic cholecystitis Post-op Diagnosis: same Procedure: Laparoscopic cholecystectomy Surgeon: Juan Francisco Asst: MORTEZA Hsu Anethesia: BRYANT Chavez EBL: minimal IVF: crystalloid Specimen: gallbladder Drains: none
[2017-06-24 14:07] VITALS: BP 130/79
--- NOTE | 2017-07-04 04:15 | OP ---
OPERATIVE REPORT: DATE OF OPERATION: 06/24/17 DATE OF : 86 SURGEON: Jigar Chicas MD ICT MANAGERS: MORTEZA Salgado ANESTHESIOLOGIST: Dr. Chavez. ANESTHESIA: General anesthesia. PRE-OP DIAGNOSIS: Chronic cholecystitis. POST-OP DIAGNOSIS: Chronic cholecystitis. PROCEDURE: Laparoscopic cholecystectomy. ESTIMATED BLOOD LOSS: Minimal blood loss. FLUIDS: Minimal crystalloid fluid given. SPECIMEN: Gallbladder. DRAINS: None. DESCRIPTION OF PROCEDURE: The patient was identified in the preoperative area, brought to the OR, pl aced on the operating table in the supine position. Preoperative antibiotics were given. Sequential devices were placed on bilateral lower extremities. General anesthesia was induced. The patient's a bdomen was prepped and draped in a standard surgical fashion. A time-out was performed. Folds of the umbilicus were elevated anteriorly and a Veress needle was inserted into the abdominal c avity, which was then allowed to insufflate to a pressure of 15 mmHg. A periumbilical incision was m doe and a 5-mm trocar was inserted into the abdominal cavity. Laparoscope was inserted through this and a Veress needle was removed. Additional trocars were then placed in the following position; a 12-mm in the subxiphoid area and two 5-mm along the right costal margin. The table was repositioned. Gallbladder was identified. The f undus was grasped and retracted over the liver. The infundibulum was grasped and retracted towards t he right lower quadrant. This exposed Calot's triangle. We took the peritoneum off the lateral aspe ct and the medial aspect of the gallbladder. A window was made at the cystic artery and around the c ystic duct and they were both doubly clipped and ligated. The gallbladder was removed from the liver bed, placed in an endoscopic retrieval bag and brought out through the subxiphoid port site. Review of the cystic duct stump, cystic artery stump showed no bleeding or bile leak. The abdomen was allow ed to collapse. Trocars were removed under direct vision and all 4 skin incisions were reapproximate d with 4-0 Monocryl subcuticular sutures followed by sterile dressing. [id number] #: [id number]
== END 2017-06-24 14:08 | disposition home or self-care (01) ==
LOC: OR 09:27
PROVIDERS: ATTEND Surgery
DX: K80.10 Calculus of gallbladder with chronic cholecystitis without obstruction (principal); E11.9 Type 2 diabetes mellitus without complications; Z79.84 Long term (current) use of oral hypoglycemic drugs; K21.9 Gastro-esophageal reflux disease without esophagitis; E03.9 Hypothyroidism, unspecified; E66.01 Morbid (severe) obesity due to excess calories; G47.33 Obstructive sleep apnea (adult) (pediatric); G40.89 Other seizures; F31.9 Bipolar disorder, unspecified; J45.909 Unspecified asthma, uncomplicated; F17.210 Nicotine dependence, cigarettes, uncomplicated
CPT/HCPCS: 81025; 88304; J0690; J1100; J1885; J2250; J2405; J2704; J3010

== ENCOUNTER 2017-07-21 16:51 | Emergency (ER) | payer MEDICAID, OTHER ==
--- OUTSIDE RECORDS SUMMARY | 2017-07-21 17:00 | XMS REPORT ---
:1990 External Reference #:[id number] Author Organization [facility] Address [address] [address] Phone [phone] Care Team Providers Name Role Phone Gordo Kidd MD Primary Care Physician Unavailable Payers Type Date Identification Numbers Payment Provider Subscriber Medicaid Policy Number: [id number] Medicaid Ladan Gomez Group Name: 1 1 [address] PayID: [id number] [place] [address] Problems Date Description Provider Status Onset: 01/26/2015 Hypothyroidism Julián Burgos NP Active Onset: 01/26/2015 Gastroesophageal reflux disease Julián Burgos NP Active Onset: 01/26/2015 Bipolar I disorder Julián Burgos NP Active Onset: 01/26/2015 Insomnia disorder related to Julián Burgos NP Active another mental disorder Onset: 11/15/2014 Neck pain Rashaun Caldwell M.D. Active Onset: 06/22/2015 Obesity Monica Aranda MD Active Onset: 08/21/2015 Obstructive sleep apnea syndrome Samia Lubin DNP, RN, Active [employer] TECHNICIAN-BC Note: CPAP Onset: 08/21/2015 Hypersomnia Samia Lubin DNP, RN, Active [employer] SERVICES TECHNICIAN-BC Onset: 08/23/2015 Hypertriglyceridemia Julián Burgos NP Active Onset: 12/14/2015 Polyarthropathy Tru Bran M.D. Active Onset: 06/22/2015 Disturbance in sleep behavior Monica Aranda MD Resolved Resolved: 04/16/2016 Onset: 12/14/2015 Concussion with no loss of [place] Pachikara, M.D. Resolved consciousness Resolved: 04/16/2016 Onset: 01/03/2016 Headache Tru Bran M.D. 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 Approximately 5-6 per day. Smoking Patient is a current smoker, smokes some days Daily Caffeine Consumes on average 2 sodas 2-3 daily per day Exercise Type/Frequency Exercises regularly Allergies, Adverse Reactions, Alerts Date Description Reaction Status Severity Comments 06/04/2017 Lamotrigine active 06/04/2017 Guaifenesin itching active can take meds seperately not mixed Medications Medication Date Status Form Strength Qnty SIG Indications Ordering Provider Cetirizine HCL 07/10/ Active Tablets 10mg 30tab 1 by mouth J01.90 Tru 2016 s every day Hilaria Bran Tylenol With 03/10/ Active Tablets 300-30mg 30tab two times M13.0 Tru Codeine #3 2016 s a day as Yina needed Hilaria Omeprazole 03/07/ Active Capsules 40mg 30cap 1 by mouth K21.9 Julián 2015 s every day Aubrey [employer] D3-1000 01/30/ Active Tablets 1000Unit 90tab take one Ken 2015 s capsule/shanel Allen daily M.DGaurang by mouth Proair HFA 08/27/ Active Aerosol 108(90Bas 1unit 1 puff R06.2 Julián 2015 e) s every 4 safia Burgos/Act hours as [employer] needed for chest tightness or wheezing Aspir-Low 08/23/ Active Tablets DR 81mg 1 po daily E78.4 Julián 2015 Aubrey [employer] Metformin HCL 08/23/ Active Tablets 500mg 30tab Take 1 E88.81 Julián 2015 s Tablet By Armenian, Mouth Once [employer] Daily Levothyroxine 03/01/ Active Tablets 88mcg 30tab Take 1 E03.9 [place] Sodium 2014 s Tablet By Janesika Mouth 1 , M.D. Time Daily Latuda / Active 120mg take 1 F31.81 Unknown 0000 tablet by mouth at bedtime; Rx by Dr. pink [facility] Gabapentin / Active Capsules 300mg 1-2 F51.05 Unknown 0000 capsules at bedtime Fenofibrate / Active Tablets 48mg 90tab 1 by mouth Julián 0000 s every day FREDI Burgos Gabapentin / Active Capsules 100mg take 1-2 Unknown 0000 capsules up to three times a day as needed Omeprazole / Active Capsules 40mg TK 1 C PO Unknown [address] DR qd Gabapentin / Active Capsules 100mg TK 1 To 2 Unknown 0000 CS PO bid Pra Latuda / Active Tablets 120mg TK 1 T qpm Unknown 0000 After Dinner Acetaminophen/Cod / Active Tablets 300-30mg TK 1 T PO Unknown eine Phosphate 0000 bid Levothyroxine / Active Tablets 88mcg TK 1 T PO Unknown Sodium 0000 qd Fluoxetine HCL / Active Capsules 10mg TK One C Unknown 0000 PO qam Fenofibrate / Active Tablets 48mg TK 1 T PO Unknown 0000 qd Metformin HCL / Active Tablets 500mg TK 1 T PO Unknown 0000 bid Zyrtec Allergy / Active Capsules 10mg take one Unknown 0000 tablet by mouth in the evening Oxycodone-Acetami 06/11/ Hx Tablets 5-325mg 15tab 1-2 tabs Berry soriano 2017 s every 6 [place], hours as , JURGEN needed for pain Azithromycin 07/04/ Hx Tablets 250mg 6tabs 2 tab [place] 2016 - today and Pachsaravananra 07/10/ then 1Hilaria gutierrez 2017 daily Amoxicillin/Clavu 06/24/ Hx Tablets 875-125mg 20tab 1 by mouth J20.9 Tru lanate Potassium 2016 - s twice a Pachikara 07/04/ antony , Hilaria 2017 Augmentin 03/17/ Hx Tablets 875-125mg 14tab 1 tablet Other 2016 - s by mouth Ordering 03/24/ q12 hours Provider 2016 for 7 days Tessalon Perles 03/07/ Hx Capsules 100mg 30cap 1-2 by Other 2016 - s mouth Ordering 04/16/ three Provider 2016 times a day as needed Flovent HFA 03/07/ Hx Aerosol 220mcg/Ac 12gm inhale two Other 2016 - t puffs by Ordering 04/16/ mouth Provider 2016 twice a day Nabumetone 01/30/ Hx Tablets 750mg 60tab take one M54.5 Ken 2016 - s capsule/ta Zulma, 04/16/ blet daily M.DGaurang 2015 by mouth as needed for pain, avoid with other nsaids, stop other nsaids (not taking) Tylenol With 11/29/ Hx Tablets 300-30mg 30tab two times M13.0 [place] Codeine #3 2016 - s a day as Pachikara 03/07/ needed , M.DGaurang 2015 Accutaine 11/07/ Hx 30mg twice a L70.0 Unknown 2015 - 2015 Paragard 08/27/ Hx IUD T380a good for Z92.0 Other Intrauterine 2016 - years Ordering Copper 04/16/ placed Provider Contraceptive 2015 T380a August 23, 2015 Amoxicillin 08/27/ Hx Tablets 500mg 30tab 1 tablet J06.9 Julián 2016 - s by mouth Armenian, 09/06/ every 8 [employer] 2016 hours x's 10 days Diflucan 08/27/ Hx Tablets 150mg 2tabs 1tab by J06.9 Julián 2016 - mouth on Armenian, 08/30/ first sign [employer] 2015 of yeast infection x's October repeat in 3 days Tricor 08/23/ Hx Tablets 48mg 30tab 1 tab po E78.4 Julián 2016 - s qd Armenian, 03/07/ [employer] 2016 Benzonatate 08/20/ Hx Capsules 100mg 20cap one by Other 2016 - s mouth Ordering 08/23/ three Provider 2016 times daily as needed for cough Fluconazole 06/26/ Hx Tablets 150mg 2tabs 1 tablet N76.0 Julián 2016 - by mouth Armenian, 06/29/ daily [employer] 2016 today, then repeat in 3 week if needed Amoxicillin 06/21/ Hx Tablets 500mg 1 tab by Unknown 2016 - mouth 08/14/ twice a 2016 day times 10 days (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 06/22/15) Mobic 06/11/ Hx Tablets 7.5mg 30tab 1 tab once M54.2 Julián 2014 - s daily as Armenian, 08/14/ needed [employer] 2016 Naprosyn 04/18/ Hx Tablets 500mg 30tab 1 tab M54.2 Julián 2014 - s every 12 Armenian, 06/11/ hours prn [employer] 2014 pain Skelaxin 04/18/ Hx Tablets 800mg 30tab 1 by mouth M54.2 Julián 2014 - s daily as Armenian, 05/18/ needed [employer] 2014 only Omeprazole 04/18/ Hx Capsules 20mg 30cap Take 1 K21.9 Julián 2014 - DR s Capsule By Armenian, 03/07/ Mouth Once [employer] 2016 Daily Cyclobenzaprine 03/22/ Hx Tablets 5mg 30tab take 1 M94.0 Julián HCL 2014 - tablet by Armenian, 04/05/ mouth up [employer] 2014 to three times a day as needed for muscle spasm Doxycycline 03/22/ Hx Capsules 100mg 30cap take 1 L70.0 Julián Hyclate 2014 - s capsule by Armenian, 11/07/ mouth once [employer] 2015 daily Epiduo 03/02/ Hx Gel 0.1-2.5% 90gm apply L70.0 Julián 2014 - topically Armenian, 11/07/ once daily [employer] 2015 at hs Metronidazole 01/29/ Hx Tablets 250mg 21tab three Yahir 2014 - s times a D. David, 03/02/ day for 7 M.D.,FACP 2015 days Fluconazole 01/26/ Hx Tablets 150mg 2tabs 1 tablet 616.10 Julián 2014 - by mouth Armenian, 03/02/ daily [employer] 2014 today, then repeat in 1 week. [place] 09/29/ Hx Tablets 5-325mg 20tab 1-2 po q4h Noreen 2011 - s prn Bernice 08/14/ Hilaria perez 2014 Neurontin 08/19/ Hx Capsules 300mg 60cap 1 po qhs Noreen 2011 - can Mony-Yo 08/14/ increase Hilaria perez 2015 to 2 tabs qhs in 3 days if needed [place]aring Carbonate / Hx Capsules 300mg 1 by mouth 296.50 Unknown 0000 - tid; Rx by 06/11/ 2015 Edith [facility] Levothyroxine / Hx Tablets 88 1 by mouth 244.9 Unknown Sodium 0000 - every day 2014 Pantoprazole /00/ Hx Tablets DR 40mg 1 by mouth 530.81 Unknown Sodium 0000 - bid every 2014 Purnima 0000/ Hx Tablets 3-0.02mg 1 by mouth Unknown 0000 - every day 2015 Cyclobenzaprine 0000/ Hx Tablets 5mg 1 tablet Unknown HCL 0000 - by mouth 04/18/ three 2015 times a day as needed Tramadol HCL 00/ Hx Tablets 50mg 1 tablets Unknown 0000 - every 8 04/18/ hours as 2015 needed Azithromycin 00/ Hx Tablets 250mg No longer Unknown 0000 - taking take one 2017 tab thursday, thu and thursday Claritin / Hx Capsules 10mg 1 by mouth Unknown 0000 - every day 2015 Medications Administered in Office Medication Date Status Form Strength Qnty SIG Indications Ordering Provider PPD Administered Injection Nurse Visit 017 A Celestone 3 mg Administered Injection Noreen and 3mg 015 Christina cook M.D. Celestone 3 mg Administered Injection Noreen and 3mg 015 Christina cook M.D. Cel[place] 3 mg Administered Injection Noreen and 3mg 015 Christina cook M.D. Celestone 3 mg Administered Injection Noreen and 3mg 012 Christina cook M.D. Celestone 3 mg Administered Injection Noreen and 3mg 012 Christina cook M.D. Hib,Unspecifie Administered Injection Unknown d 990 Immunizations CPT Code Status Date Vaccine Lot # 32554 Given 03/29/2016 Influenza Virus Vaccine, Quadrivalent, Split Virus, [place] Use 89[address] Given 03/02/2015 Influenza Virus Vaccine, Quadrivalent, Split, [id number] Preservative Free 42412 Given 09/04/2010 Tdap - Tetanus/Diptheria/Acellular Pertussis 65087 Given 04/19/2008 Gardasil (HPV) 29613 Given 12/27/2007 Gardasil (HPV) 52213 Given 06/04/2007 Gardasil (HPV) 79733 Given 10/09/2005 Meningococcal Immunization 50980 Given 10/09/2005 Tdap - Tetanus/Diptheria/Acellular Pertussis 49637 Given 06/26/1999 Hep B Pediatric/Adolescent 53565 Given 10/29/1998 Hep B Pediatric/Adolescent 06538 Given 08/30/1998 Hep B Pediatric/Adolescent 66176 Given 02/15/1993 DTaP Vaccine Younger Than 7 92954 Given 02/15/1993 Measles Mumps And Rubella MMR 09122 Given 02/15/1993 IPV/Poliomyelitis Immunization 85718 Given 07/30/1989 IPV/Poliomyelitis Immunization 02975 Given 07/30/1989 DTaP Vaccine Younger Than 7 54575 Given 05/15/1989 Measles Mumps And Rubella MMR 57823 Given 02/12/1989 DTaP Vaccine Younger Than 7 90642 Given 1988 IPV/Poliomyelitis Immunization 74533 Given 1988 DTaP Vaccine Younger Than 7 33385 Given 1988 IPV/Poliomyelitis Immunization 02903 Given 1988 DTaP Vaccine Younger Than 7 Vital Signs Date Vital Result Comment 07/02/2017 Heart Rate 78 /min BP Systolic Sitting 120 mmHg BP Diastolic Sitting 82 mmHg Respiratory Rate 18 /min Body Temperature 98.0 F 06/11/2017 Heart Rate 72 /min BP Systolic 126 mmHg BP Diastolic 82 mmHg Respiratory Rate 16 /min Body Temperature 98.7 F 06/04/2017 Height 63 inches 5'3" Weight 220.00 lb Heart Rate 62 /min BP Systolic 140 mmHg BP Diastolic 80 mmHg Respiratory Rate 16 /min Body Temperature 98.3 F BMI (Body Mass Index) 39.0 kg/m2 09/12/2016 Height 63.5 inches 5'3.50" Weight 236.00 lb Heart Rate 99 /min BP Systolic Sitting 126 mmHg BP Diastolic Sitting 84 mmHg Respiratory Rate 14 /min Body Temperature 98.1 F Pain Level 7 BMI (Body Mass Index) 41.1 kg/m2 07/22/2016 Weight 226.38 lb Heart Rate 88 /min BP Systolic Sitting 118 mmHg BP Diastolic Sitting 78 mmHg Body Temperature 98.7 F O2 % BldC Oximetry 98 % 07/10/2016 Weight 225.38 lb Heart Rate 94 /min BP Systolic Sitting 124 mmHg BP Diastolic Sitting 88 mmHg Body Temperature 98.5 F O2 % BldC Oximetry 98 % 06/24/2016 Weight 223.38 lb Heart Rate 104 /min BP Systolic Sitting 124 mmHg BP Diastolic Sitting 70 mmHg Body Temperature 98.4 F O2 % BldC Oximetry 98 % 04/16/2016 Height 63.5 inches 5'3.50" Weight 227.00 lb Heart Rate 81 /min BP Systolic 116 mmHg BP Diastolic 84 mmHg Body Temperature 99.5 F O2 % BldC Oximetry 97 % BMI (Body Mass Index) 39.6 kg/m2 04/16/2016 Height 63.5 inches 5'3.50" Weight 227.50 lb Heart Rate 80 /min BP Systolic Sitting 120 mmHg BP Diastolic Sitting 70 mmHg Respiratory Rate 14 /min Body Temperature 98.2 F Pain Level 10 BMI (Body Mass Index) 39.7 kg/m2 03/07/2016 Weight 226.12 lb Heart Rate 95 /min BP Systolic Sitting 120 mmHg BP Diastolic Sitting 82 mmHg Body Temperature 98.4 F O2 % BldC Oximetry 98 % 02/11/2016 Height 63.5 inches 5'3.50" Weight 226.00 lb Heart Rate 90 /min BP Systolic 122 mmHg BP Diastolic 82 mmHg Respiratory Rate 14 /min O2 % BldC Oximetry 98 % BMI (Body Mass Index) 39.4 kg/m2 01/31/2016 Height 63.5 inches 5'3.50" Weight 226.00 lb Heart Rate 88 /min BP Systolic Sitting 126 mmHg BP Diastolic Sitting 70 mmHg Respiratory Rate 14 /min Body Temperature 98.5 F Pain Level 7 BMI (Body Mass Index) 39.4 kg/m2 01/10/2016 Height 63.5 inches 5'3.50" Weight 226.00 lb Heart Rate 84 /min BP Systolic Sitting 116 mmHg BP Diastolic Sitting 76 mmHg Respiratory Rate 16 /min Body Temperature 97.7 F Pain Level 6 BMI (Body Mass Index) 39.4 kg/m2 01/03/2016 Height 63.5 inches 5'3.50" Weight 228.00 lb Heart Rate 110 /min BP Systolic Sitting 122 mmHg BP Diastolic Sitting 80 mmHg O2 % BldC Oximetry 98 % BMI (Body Mass Index) 39.8 kg/m2 12/14/2015 Weight 228.00 lb Heart Rate 80 /min BP Systolic Sitting 118 mmHg BP Diastolic Sitting 70 mmHg Body Temperature 99.2 F O2 % BldC Oximetry 96 % 11/30/2015 Weight 225.00 lb Heart Rate 98 /min BP Systolic Sitting 140 mmHg BP Diastolic Sitting 90 mmHg Body Temperature 97.5 F O2 % BldC Oximetry 98 % 11/15/2015 Height 63.5 inches 5'3.50" Weight 224.00 lb Heart Rate 98 /min BP Systolic Sitting 118 mmHg BP Diastolic Sitting 80 mmHg Body Temperature 98.9 F O2 % BldC Oximetry 97 % BMI (Body Mass Index) 39.1 kg/m2 11/09/2015 Height 63.5 inches 5'3.50" Weight 210.00 lb as written Heart Rate 105 /min BP Systolic Sitting 118 mmHg BP Diastolic Sitting 60 mmHg Respiratory Rate 14 /min O2 % BldC Oximetry 97 % BMI (Body Mass Index) 36.6 kg/m2 08/28/2015 Height 63.5 inches 5'3.50" Weight 218.00 lb Heart Rate 114 /min BP Systolic Sitting 110 mmHg BP Diastolic Sitting 92 mmHg Body Temperature 99.0 F O2 % BldC Oximetry 98 % BMI (Body Mass Index) 38.0 kg/m2 08/24/2015 Height 63.5 inches 5'3.50" Weight 217.00 lb Heart Rate 109 /min recheck 88 BP Systolic Sitting 120 mmHg BP Diastolic Sitting 94 mmHg Body Temperature 98.9 F O2 % BldC Oximetry 98 % BMI (Body Mass Index) 37.8 kg/m2 08/21/2015 Height 63.5 inches 5'3.50" Weight 218.00 lb Heart Rate 101 /min BP Systolic Sitting 116 mmHg BP Diastolic Sitting 72 mmHg Respiratory Rate 18 /min O2 % BldC Oximetry 98 % BMI (Body Mass Index) 38.0 kg/m2 08/15/2015 Height 63.5 inches 5'3.50" Weight 218.12 lb Heart Rate 92 /min BP Systolic Sitting 108 mmHg BP Diastolic Sitting 86 mmHg Body Temperature 99.4 F O2 % BldC Oximetry 98 % BMI (Body Mass Index) 38.0 kg/m2 06/26/2015 Height 64.5 inches 5'4.50" Weight 221.50 lb Heart Rate 98 /min BP Systolic Sitting 118 mmHg BP Diastolic Sitting 68 mmHg Body Temperature 99.3 F O2 % BldC Oximetry 93 % BMI (Body Mass Index) 37.4 kg/m2 06/22/2015 Height 64.5 inches 5'4.50" Weight 222.00 lb Heart Rate 106 /min BP Systolic Sitting 122 mmHg BP Diastolic Sitting 82 mmHg O2 % BldC Oximetry 98 % BMI (Body Mass Index) 37.5 kg/m2 06/20/2015 Height 64.5 inches 5'4.50" Weight 222.12 lb Heart Rate 86 /min BP Systolic 112 mmHg BP Diastolic 86 mmHg BP Systolic Sitting 98 mmHg Respiratory Rate 14 /min Body Temperature 98.1 F tympanic Pain Level 0 O2 % BldC Oximetry 98 % BMI (Body Mass Index) 37.5 kg/m2 06/11/2015 Height 64.5 inches 5'4.50" Weight 221.00 lb Heart Rate 94 /min BP Systolic Sitting 132 mmHg BP Diastolic Sitting 102 mmHg Body Temperature 99.1 F O2 % BldC Oximetry 98 % BMI (Body Mass Index) 37.3 kg/m2 04/18/2015 Height 64.5 inches 5'4.50" Weight 225.25 lb Heart Rate 108 /min BP Systolic Sitting 104 mmHg BP Diastolic Sitting 84 mmHg Body Temperature 99.7 F O2 % BldC Oximetry 94 % BMI (Body Mass Index) 38.1 kg/m2 04/18/2015 Height 64.5 inches 5'4.50" Weight 235.00 lb Pain Level 0 BMI (Body Mass Index) 39.7 kg/m2 03/22/2015 Height 64.5 inches 5'4.50" Weight 234.12 lb Heart Rate 100 /min BP Systolic Sitting 122 mmHg BP Diastolic Sitting 70 mmHg Body Temperature 99.1 F O2 % BldC Oximetry 97 % BMI (Body Mass Index) 39.6 kg/m2 03/21/2015 Height 64.5 inches 5'4.50" Weight 228.00 lb Pain Level 0 BMI (Body Mass Index) 38.5 kg/m2 03/02/2015 Height 64.5 inches 5'4.50" Weight 228.50 lb Heart Rate 105 /min BP Systolic Sitting 130 mmHg BP Diastolic Sitting 80 mmHg Body Temperature 97.9 F O2 % BldC Oximetry 98 % BMI (Body Mass Index) 38.6 kg/m2 02/21/2015 Height 64.5 inches 5'4.50" Weight 233.00 lb Pain Level 3 BMI (Body Mass Index) 39.4 kg/m2 01/26/2015 Height 64.50 inches 5'4.50" Weight 233.31 lb Heart Rate 106 /min BP Systolic Sitting 100 mmHg BP Diastolic Sitting 60 mmHg Body Temperature 98.4 F O2 % BldC Oximetry 96 % BMI (Body Mass Index) 39.4 kg/m2 01/24/2015 Height 64 inches 5'4" Weight 230.00 lb Heart Rate 93 /min BP Systolic 129 mmHg BP Diastolic 90 mmHg BMI (Body Mass Index) 39.5 kg/m2 11/15/2014 Height 66 inches 5'6" Weight 228.00 lb Heart Rate 76 /min BP Systolic Sitting 122 mmHg BP Diastolic Sitting 80 mmHg Pain Level 7 neck BMI (Body Mass Index) 36.8 kg/m2 10/04/2014 Height 66 inches 5'6" Weight 200.00 lb Pain Level 0 BMI (Body Mass Index) 32.3 kg/m2 09/20/2014 Height 66 inches 5'6" Weight 200.00 lb Heart Rate 84 /min BP Systolic 111 mmHg BP Diastolic 79 mmHg BMI (Body Mass Index) 32.3 kg/m2 08/15/2014 Height 66 inches 5'6" Weight 200.00 lb Heart Rate 88 /min BP Systolic 112 mmHg BP Diastolic 83 mmHg BMI (Body Mass Index) 32.3 kg/m2 09/20/2010 Height 66 inches 5'6" Weight 170.00 lb Heart Rate 81 /min BP Systolic 115 mmHg BP Diastolic 82 mmHg BMI (Body Mass Index) 27.4 kg/m2 Results Test Date Test Result H/L Range Note Laboratory test 06/24/2017 Surgical Pathology SEE RESULT BELOW 1 finding Laboratory test 06/24/2017 Point of Care 98 mg/dL 70-100 2 finding Glucose Laboratory test 10/15/2016 Point of Care 87 mg/dL 74-106 3 finding Glucose Laboratory test 10/15/2016 Urine Negative Negative 4 finding Laboratory test 07/19/2016 Erythrocyte Sed Rate 17 mm/Hr High 0-14 5 finding C Reactive Protein 11.59 mg/L High < 5.00 6 CBC No Diff 04/21/2016 White Blood Count 7.3 10^3/uL 3.5-10.8 Red Blood Count 4.87 10^6/uL 4.0-5.4 Hemoglobin 14.3 g/dL 12.0-16.0 Hematocrit 41 % 35-47 Mean Corpuscular Volume 85 fL 80-97 Mean Corpuscular Hemoglobin 29 pg 27-31 Mean Corpuscular HGB Conc 35 g/dL 31-36 Red Cell Distribution Width 13 % 10.5-15 Platelet Count 434 10^3/uL 150-450 Mean Platelet Volume 8 um3 7.4-10.4 Laboratory test finding 04/21/2016 HCG < 0.60 mIU/mL 7 Lipid Profile (Trig/Chol/HDL) 04/21/2016 Triglycerides 219 mg/dL 8 Cholesterol 168 mg/dL 9 HDL Cholesterol 51.5 mg/dL 10 LDL Cholesterol 73 mg/dL 11 Liver Function Panel 04/21/2016 Total Protein 8.1 g/dL 6.4-8.9 Albumin 4.5 g/dL 3.2-5.2 Globulin 3.6 g/dL 2-4 Albumin/Globulin Ratio 1.3 1-3 Total Bilirubin 0.30 mg/dL 0.2-1.0 Direct Bilirubin 0.10 mg/dL 0.03-0.18 Indirect Bilirubin 0.2 mg/dL Low 0.3-1.0 Alkaline Phosphatase 75 U/L 34-104 Alt 19 U/L 7-52 Ast 18 U/L 13-39 Vitamin D 1,25 And Vitamin 01/10/2016 Vitamin D Total 25(Oh) 25.3 ng/mL Low 30-50 12 D,2 Vitamin D, 1,25 Dihydroxy 76 pg/mL 18-78 13 Laboratory test finding 01/10/2016 Free T4 (Free Thyroxine) 0.88 ng/dL 0.61-1.12 14 Hla B27 01/10/2016 Hla B27 Negative 15 Hla B27 Interp See Comment 16 Laboratory test finding 01/10/2016 C Reactive Protein 20.52 mg/L High &lt ; 5.00 17 Laboratory test finding 11/30/2015 Erythrocyte Sed Rate 18 mm/Hr High 0- 14 18 Lyme Disease Serology Negative Negative 19 Comp Metabolic Panel 11/30/2015 Sodium 135 mmol/L 133-145 Potassium 3.8 mmol/L 3.5-5.0 Chloride 102 mmol/L 101-111 Co2 Carbon Dioxide 24 mmol/L 22-32 Anion Gap 9 mmol/L 2-11 Glucose 121 mg/dL High 70-100 Blood Urea Nitrogen 14 mg/dL 6-24 Creatinine 0.86 mg/dL 0.51-0.95 BUN/Creatinine Ratio 16.3 8-20 Calcium 9.3 mg/dL 8.6-10.3 Total Protein 7.3 g/dL 6.4-8.9 Albumin 4.3 g/dL 3.2-5.2 Globulin 3.0 g/dL 2-4 Albumin/Globulin Ratio 1.4 1-3 Total Bilirubin 0.40 mg/dL 0.2-1.0 Alkaline Phosphatase 67 U/L 34-104 Alt 33 U/L 7-52 Ast 33 U/L 13-39 Egfr Non- 79.2 >60 Egfr 101.8 >60 20 CBC Auto Diff 11/30/2015 White Blood Count 7.4 10^3/uL 3.5-10.8 Red Blood Count 4.76 10^6/uL 4.0-5.4 Hemoglobin 13.8 g/dL 12.0-16.0 Hematocrit 40 % 35-47 Mean Corpuscular Volume 85 fL 80-97 Mean Corpuscular Hemoglobin 29 pg 27-31 Mean Corpuscular HGB Conc 34 g/dL 31-36 Red Cell Distribution Width 13 % 10.5-15 Platelet Count 368 10^3/uL 150-450 Mean Platelet Volume 8 um3 7.4-10.4 Abs Neutrophils 4.4 10^3/uL 1.5-7.7 Abs Lymphocytes 2.0 10^3/uL 1.0-4.8 Abs Monocytes 0.5 10^3/uL 0-0.8 Abs Eosinophils 0.5 10^3/uL 0-0.6 Abs Basophils 0.1 10^3/uL 0-0.2 Abs Nucleated RBC 0 10^3/uL Granulocyte % 59.9 % 38-83 Lymphocyte % 27.0 % 25-47 Monocyte % 6.3 % 1-9 Eosinophil % 6.1 % High 0-6 Basophil % 0.7 % 0-2 Nucleated Red Blood Cells % 0.1 Laboratory test finding 11/30/2015 Rheumatoid Factor <15 IU/mL <15 21 Anti Nuclear Antibody 0.8 U 22 Laboratory test 11/15/2015 Hemoglobin A1c (Glyco 5.2 % Less than 6.0 23 finding HGB) Laboratory test 08/22/2015 LDL Cholesterol Direct 63 mg/dL 24 finding CBC Auto Diff 08/16/2015 White Blood Count 8.2 10^3/uL 3.5-10.8 Red Blood Count 4.58 10^6/uL 4.0-5.4 Hemoglobin 13.3 g/dL 12.0-16.0 Hematocrit 39 % 35-47 Mean Corpuscular Volume 85 fL 80-97 Mean Corpuscular Hemoglobin 29 pg 27-31 Mean Corpuscular HGB Conc 34 g/dL 31-36 Red Cell Distribution Width 12 % 10.5-15 Platelet Count 341 10^3/uL 150-450 Mean Platelet Volume 7 um3 Low 7.4-10.4 Abs Neutrophils 5.0 10^3/uL 1.5-7.7 Abs Lymphocytes 2.3 10^3/uL 1.0-4.8 Abs Monocytes 0.6 10^3/uL 0-0.8 Abs Eosinophils 0.3 10^3/uL 0-0.6 Abs Basophils 0.1 10^3/uL 0-0.2 Abs Nucleated RBC 0 10^3/uL Granulocyte % 60.7 % 38-83 Lymphocyte % 27.8 % 25-47 Monocyte % 7.3 % 1-9 Eosinophil % 3.6 % 0-6 Basophil % 0.6 % 0-2 Nucleated Red Blood Cells % 0 Basic Metabolic Panel 08/16/2015 Sodium 135 mmol/L 133-145 Potassium 4.3 mmol/L 3.5-5.0 Chloride 103 mmol/L 101-111 Co2 Carbon Dioxide 22 mmol/L 22-32 Anion Gap 10 mmol/L 2-11 Glucose 84 mg/dL 70-100 Blood Urea Nitrogen 12 mg/dL 6-24 Creatinine 0.73 mg/dL 0.51-0.95 BUN/Creatinine Ratio 16.4 8-20 Calcium 8.9 mg/dL 8.6-10.3 Egfr Non- 95.6 >60 Egfr 123.0 >60 25 Lipid Profile (Trig/Chol/HDL) 08/16/2015 Triglycerides 431 mg/dL 26 Cholesterol 155 mg/dL 27 HDL Cholesterol 42.3 mg/dL 28 Laboratory test 08/16/2015 TSH (Thyroid Stim 3.62 ?IU/mL 0.34-5.60 finding Horm) Laboratory test 08/15/2015 Cytology SEE RESULT BELOW 29 finding Laboratory test 03/09/2015 Surgical Pathology SEE RESULT BELOW 30 finding Ua Routine 01/26/2015 Ua Specific [place] 1.020 Ua PH 5 Ua Color yellow Ua Appera clear Ua WBC neg Ua Protein neg Ua Glucose neg Ua Ketones neg Ua Bilirubin neg Ua Urobilinogen norm Ua Nitrite neg Ua Occult Blood neg GC/Chlamydia Amplified Rna 01/26/2015 Chlamydia trachomatis Rna Negative Negative Neisseria gonorrhoeae (GC) Rna Negative Negative 31 Laboratory test finding 01/26/2015 Test Urine negative Laboratory test finding 01/26/2015 Gardnerella/Yeast: SEE RESULT BELOW 32 Vaginal Dna Trichomonas Vaginalis Rna Negative Negative 33 1 SEE RESULT BELOW Name: LADAN GOMEZ Cruz : [address]: Jigar Chicas MD Acct: [id number] Unit: [id number] AGE: 27 Location: OR Re06/24/17 SEX: F Status: DEP SD SPEC: [id number] FRIEDA: 06/24/17- SUBM DR: Jigar Chicas MD REQ: [id number] RECD: 06/24/17-1426 STATUS: SOUT _ ORDERED: LEVEL 3 FINAL DIAGNOSIS Gallbladder, cholecystectomy: -- Chronic cholecystitis with cholelithiasis. CLINICAL HISTORY No history given GROSS DESCRIPTION The specimen is received in formalin labeled, Gallbladder, and consists of an 8.3 x 3.0 x 1.8 cm intact gallbladder. The serosa is glistening smooth sanchez-pink. Impacted within the cystic neck there is a 1.3 x 1.2 x 1.2 cm brown ovoid granular to crystalloid cholelith. The remaining lumen contains green tenacious bile. The mucosa is reticulated to granular sanchez-pink with moderate sanchez-white stippling and the wall thickness measures up to 0.2 cm. Stoker Mechanic sections, one cassette. Signed (signature on file) Garrison Payton MD 1518 END OF REPORT * ML=Testing performed at Main Lab DEPARTMENT OF PATHOLOGY, [address] [place] [address] Garrison Payton M.D. Director [facility] # [id number] 2 Coffin Maker: [id number] Coffin Maker: [id number] 4 If is still suspected, please repeat test after 48 to 72 hours. This test detects intact HCG only and is indicated for the early detection of . 5 Please check labs today 6 Acute inflammation: >10.00 7 <5.0 Negative 5.0 - 25.0 Indeterminate (Repeat testing recommended after 72 hours) >25.0 Positive Perimenopausal women can display HCG levels of up to 20 mIU/mL 8 Desirable <150 Borderline high 150-199 High 200-499 Very High >500 9 Desirable <200 Borderline high 200-239 High >239 10 Low <40 Desirable: 40-60 High: >60 11 Desirable: <100 mg/dL Near Optimal: 100-129 mg/dL Borderline High: 130-159 mg/dL High: 160-189 mg/dL Very High: >189 mg/dL 12 Please check labs this week and xray 13 Test Performed by: [facility] - [address] [address] Passenger Vessel Chef: Rishabh Erwin II, M.D., Ph.D. 14 Please check labs this week and xray 15 REFERENCE VALUE Not Applicable 16 RESULT: HLA-B27 antigen was not detected. ADDITIONAL INFORMATION Method: Flow Cytometry Performing Laboratory CLIA# [id number] Test Performed by: [place] [address] Passenger Vessel Chef: Rishabh Erwin II, M.D., Ph.D. 17 Acute inflammation: >10.00 18 Have these labs done in 3 months Due: November 23 Serologic response to B. burgdorferi infection is not detected, but cannot rule out early infection during which low or undetectable antibody levels to B. burgdorferi may be present. If clinically indicated, a new serum specimen should be submitted in 7-14 days. Test Performed by: [place] [address] Passenger Vessel Chef: Rishabh Erwin II, M.D., Ph.D. 20 Because ethnic data is not always readily available, this report includes an eGFR for both -Americans and non- Americans. The National Kidney Disease Education Program (NKDEP) does not endorse the use of the MDRD equation for patients that are not between the ages of 18 and 70, are , have extremes of body size, muscle mass, or nutritional status, or are non- or non-. According to the National Kidney Foundation, irrespective of diagnosis, the stage of the disease is based on the level of kidney function: Stage Description GFR(mL/min/1.73 m(2)) 1 Kidney damage with normal or decreased GFR 90 2 Kidney damage with mild decrease in GFR 60-89 3 Moderate decrease in GFR 30-59 4 Severe decrease in GFR 15-29 5 Kidney failure <15 (or dialysis) 21 Test Performed by: [place] [address] Passenger Vessel Chef: Rishabh Erwin II, M.D., Ph.D. 22 REFERENCE VALUE <=1.0 (Negative) Test Performed by: [place] [address] Passenger Vessel Chef: Rishabh Erwin II, M.D., Ph.D. 23 Therapeutic target for the treatment of diabetes Mellitus patients is <7% HBA1C, and in selective patients <6.0%.Please refer to [place] Diabetes Association Diabetic care guidelines for further information. 24 Desirable: <100 mg/dL Near Optimal: 100-129 mg/dL Borderline High: 130-159 mg/dL High: 160-189 mg/dL Very High: >189 mg/dL 25 Because ethnic data is not always readily available, this report includes an eGFR for both -Americans and non- Americans. The National Kidney Disease Education Program (NKDEP) does not endorse the use of the MDRD equation for patients that are not between the ages of 18 and 70, are , have extremes of body size, muscle mass, or nutritional status, or are non- or non-. According to the National Kidney Foundation, irrespective of diagnosis, the stage of the disease is based on the level of kidney function: Stage Description GFR(mL/min/1.73 m(2)) 1 Kidney damage with normal or decreased GFR 90 2 Kidney damage with mild decrease in GFR 60-89 3 Moderate decrease in GFR 30-59 4 Severe decrease in GFR 15-29 5 Kidney failure <15 (or dialysis) 26 Desirable <150 Borderline high 150-199 High 200-499 Very High >500 27 Desirable <200 Borderline high 200-239 High >239 28 Low <40 Desirable: 40-60 High: >60 29 SEE RESULT BELOW Name: LADAN WHALEY V : [address]: Julián Burgos NP Acct: [id number] Unit: [id number] AGE: 25 Location: [facility] Re08/15/15 SEX: F Status: REG REF SPEC: [id number] FRIEDA: 08/15/15-[address]: Julián Burgos [employer]CE[employer]IGHT FORWARDER REQ: [id number] RECD: 08/15/15 STATUS: SOUT _ ORDERED: IMAGE ANALYSIS FINAL DIAGNOSIS Negative for Intraepithelial lesion or Malignancy A. Ectocervical/Endocervical Specimen Adequacy: Satisfactory of evaluation Transformation zone component identified Patient Information: HPV: Thin Layer Pap Test w/reflex to high risk HPV RNA testing when ASCUS Actual Specimen Date: 08/15/15 Last Menstrual Date: 08/05/15 Spec Date if unknown: 04/2015 ? ?: N Post Menopausal?: N Hysterectomy?: N Previous Abnormal Pap Smears?:N Signed (signature on file) KALYN Daugherty (ASCP) 08/15 0497 This Pap test was evaluated with the assistance of the Grows UpPrep Test Imaging System. Due to cytologic findings at the senior manager microscope, comprehensive manual rescreening by a Shaft Repairer may be required. The Pap Smear is a screening test designed to aid in the detection of premalignant and malignant conditions of the uterine cervix. It is not a diagnostic procedure and should not be used as the sole means of detecting cervical cancer. Both false- positive and false- negative reports do occur. Depending on your risk status, a Pap smear should be obtained and evaluated every 1-3 years. END OF REPORT * ML=Testing performed at Main Lab DEPARTMENT OF PATHOLOGY, [address] [place] [address] Garrison Payton M.D. Director [facility] # [id number] 30 SEE RESULT BELOW Name: LADAN WHALEY V : [address]: Noreen Wilkinson Acct: [id number] Unit: [id number] AGE: 25 Location: [facility] Re03/09/15 SEX: F Status: REG [facility] [place]C: [id number] FRIEDA: 03/09/15-[address] [facility] [address]: Noreen Wilkinson MD REQ: [id number] RECD: 03/09/15160 STATUS: SOUT _ ORDERED: LEVEL IV FINAL DIAGNOSIS Left index finger, excision: -- Hemangioma. PRE-OPERATIVE DIAGNOSIS Swelling mass or lump localized superficial left index finger GROSS DESCRIPTION The specimen is received in formalin labeled, Mass Left Index Finger, and consists of a 1.0 x 0.5 x 0.3 cm snider white irregular rubbery soft tissue nodule, which is inked, trisected and submitted entirely in one cassette. Signed (signature on file) [place] العراقي MD 1014 END OF REPORT * ML=Testing performed at Main Lab DEPARTMENT OF PATHOLOGY, [address] [place] [address] Garrison Payton M.D. Director [facility] # [id number] 31 Female urine specimens have been self-validated by [facility] and have been granted conditional assay approval by [facility]. 32 SEE RESULT BELOW Name: LADAN WHALEY V : [address]: Julián Burgos NP Acct: [id number] Unit: [id number] AGE: 25 Location: [facility] Re01/26/15 SEX: F Status: REG REF SPEC: [id number] FRIEDA: 01/26/15-[address]: Julián Burgos [employer]WARDER REQ: [id number] RECD: 01/26/15 STATUS: COMP _ SOURCE: VAGINAL SPDESC: ORDERED: Catrina,Yeast DNA Procedure Result Verified Site Gardnerella/Yeast: Vaginal DNA Final 01/27/15- 1501 ML Organism 1 POSITIVE GARDNERELLA Organism 2 Negative Kimberly The presence of G. vaginalis, although suggestive, is not diagnostic for bacterial vaginosis. Results should be interpreted in conjuction with other clinical and laboratory data available. Women with vaginal discharge should be evaluated for risk factors of cervicitis and pelvic inflammatory disease, toxic shock syndrome (S.aureus), and if present, evaluated for organisms not included in this assay such as N. gonorrhoeae, C. trachomatis, Mobiluncus, Mycoplasma and/or Prevotella. Mixed infections may occur. The performance of this test on patient specimens collected during or immediately after antimicrobial therapy is unknown. The presence or absence of Kimberly species, or G. vaginalis cannot be used as a test for therapeutic success or failure. * ML - MAIN LAB ([facility]) . END OF REPORT * ML=Testing performed at Main Lab DEPARTMENT OF PATHOLOGY, [address] [place] [address] Garrison Payton M.D. Director [facility] # [id number] 33 Trichomonas Source: Endocervical Procedures Date CPT Code Description Status 11/21/2016 42685 EEG Recording Awake & Drowsy Completed 07/31/2015 49444 Polysomnography Sleep Staging 4+ Parameters Completed 03/09/2015 88817 Excision Tumor/Vasular Malform Hand/Finger Subfascial Completed < 1.5 CM 03/09/2015 67455 Excision Tumor/Vasular Malform Hand/Finger Subfascial Completed < 1.5 CM 08/17/2014 89082 ECHO Transthoracic, Real-Time 2D With Doppler And Color Completed Flow 08/15/2014 Injection, Carpal Tunnel Completed 08/15/201473028 Injection, Carpal Tunnel Completed 10/09/2011 61257 Carpal Tunnel Release Completed 10/09/2011 20785 Carpal Tunnel Release Completed 07/11/201155272 Injection, Carpal Tunnel Completed 02/26/2011 20006 Rad Exam; Ankle Comp Completed 11/20/2010 48400 Rad Exam; Foot Limited Completed 11/20/2010 96479 Rad Exam; Ankle Comp Completed 10/21/2010 03058 Rad Exam; Ankle Comp Completed 09/30/2010 12395 Rad Exam; Ankle Comp Completed 09/20/2010 95417 CLSD TX Distal Fib FX (Lateral Malleolus) w/o Completed manipulation Encounters Type Date Location Provider CPT E/M Dx Office Visit 09/12/2016 Rheumatology Services DIEGO Montoya 60467 M54.2 3:00p Of Burt M54.5 Office Visit 07/22/2016 8:20a [facility] Internal [place] [address] J32.9 Medicine - [address] M.D. Office Visit 07/10/2016 4:40p [facility] Internal [place] 39731 J01.90 Medicine - [address] M.D. Office Visit 06/24/2016 10:40a [facility] Internal [place] 52158 J20.9 Medicine - [address] M.DGaurang Office Visit 04/16/2016 3:40p [facility] Internal [place], [address] K21.9 Medicine - [place] M.DGaurang E03.9 F31.81 J45.20 Office Visit 04/16/2016 2:20p Rheumatology Services Of Ken Maya, 44194 M54.5 [facility] M.DGaurang R70.0 M51.36 M79.1 Office Visit 03/07/2016 9:40a [facility] [place] [address] S06.0x0D K21.9 M54.5 Office Visit 02/11/2016 11:00a Pulmonology And Sleep Samia Lubin, 64743 G47.33 Services Of [facility] JOSE A DE LA CRUZ, DIEGO- G89.29 G47.14 Office Visit 01/31/2016 10:40a Rheumatology Services Of Ken Maya, 72919 M54.5 Director Of Integrated Marketing M.D. M79.1 R70.0 M51.36 Z79.899 Office Visit 01/10/2016 10:00a Rheumatology Services Of Ken Maya, 98694 M54.2 Burt M.D. M54.5 M79.1 R20.8 R70.0 E66.9 Office Visit 01/03/2016 8:40a [facility] Internal Tru [place] M.D. 90285 R00.0 Medicine - [address] R51 E66.9 S06.0x0D Office Visit 12/14/2015 4:20p [facility] Internal [place] 33473 S06.0x0A Medicine [place] M13.0 Office Visit 11/30/2015 11:00a [facility] Internal [place] [address]8910 M13.0 Medicine - [place] M.DGaurang Office Visit 11/15/2015 1:00p [facility] Internal Julián [place] [address] Z00.00 Medicine - [address] E88.81 G47.30 E03.9 L70.0 F31.81 F51.05 E78.4 Office Visit 11/09/2015 11:15a Pulmonology And Sleep Samia Lubin, 39430 G47.33 Services Of [facility] DNP, RN, MARINE SERVICES TECHNICIAN- Office Visit 08/28/2015 11:20a [facility] Internal Medicine Julián Burgos, OCE[employer] FREIGHT FORWARDER [address] J06.9 - [address] R05 R06.2 Office Visit 08/24/2015 8:00a [facility] Internal Medicine - Julián Burgos, OCE[employer] FORWARDER [address] G47.30 J00 R05 E78.4 Office Visit 08/21/2015 3:15p Pulmonology And Sleep Samia Lubin, 25443 G47.33 Services Of [facility] JONO RN, MARINE SERVICES TECHNICIAN- Office Visit 08/15/2015 11:20a [facility] Internal Medicine Julián Burgos, OCE[employer] FREIGHT FORWARDER [address] Z01.[address] - [address] E03.9 Z13.220 Z13.1 F31.9 Office Visit 06/26/2015 3:20p [facility] Internal Medicine - Julián Burgos, [employer]CE[employer] FORWARDER [address] Office Visit 06/22/2015 1:00p Pulmon[place] [address] G47.9 Services Of [facility] E66.09 Office Visit 06/20/2015 1:40p [facility] Internal Medicine - Julián Burgos, [employer]CE[employer] FORWARDER [address] Office Visit 06/11/2015 2:00p [facility] Internal Medicine - Julián Burgos, OCE[employer] FORWARDER [address] M54.2 Office Visit 04/18/2015 1:30p [facility] Internal Medicine - Julián Burgos, OCE[employer] FORWARDER [address] M54.2 K21.9 Office Visit 03/22/2015 9:30a [facility] Internal Medicine - Julián Burgos, OCE[employer] FORWARDER [address] L70.0 J06.9 Office Visit 03/02/2015 2:30p [facility] Internal Medicine - Julián Armenian, OCE[employer] FORWARDER [address] 706.1 Office Visit 02/21/2015 8:45a Orthopedic Services Noreen Wilkinson, 02983 782.2 Of Jayden Manrique Office Visit 01/26/2015 3:30p [facility] Internal Julián Burgos, OCE[employer]IGHT FORWARDER [address] 626.0 Medicine - [address] 616.10 244.8 Office Visit 01/24/2015 8:00a Orthopedic Services Noreen 14577 719.44 Of Jayden Wilkinson M.D. Office Visit 11/15/2014 9:30a Neurosurgery Rashaun Caldwell M.D. 51379 723.1 Services Of [facility] Office Visit 10/04/2014 10:45a Orthopedic Services Noreen 87880 729.5 Of Jayden Wilkinson M.D. Office Visit 09/20/2014 10:00a Orthopedic Services Noreen 56139 729.5 Of Jayden Wilkinson M.D. Office Visit 08/15/2014 10:45a Orthopedic Services Noreen 87180 354.0 Of Jayden Wilkinson M.D. 354.0 Office Visit 10/15/2012 10:45a Orthopedic Services Austen Morocho 22345 845.00 Of Pankaj Lindsey Office Visit 08/20/2011 9:30a Orthopedic Services Noreen 61843 354.0 Of Jayden Wilkinson M.D. Office Visit 08/08/2011 8:45a Orthopedic Services Noreen 60068 719.44 Of Jayden Wilkinson M.D. Office Visit 07/11/2011 8:00a Orthopedic Services Noreen 40610 719.44 Of Jayden Wilkinson M.D. Office Visit 06/19/2011 1:00p Orthopedic Services ASAD Hewitt 28969 354.0 Of Jayden 727.04 Office Visit 02/26/2011 3:30p Orthopedic Services Of Juan Mane M.D. 53442 845.00 C.MGaurangAGaurang Plan of Care 07/02/2017 - Sanjay Hsu PAK80.10 Calculus of gallbladder w chronic cholecyst w/o obstructionFollow up:As needed.
[2017-07-21 17:23] VITALS: BP 114/74
--- NOTE | 2017-07-21 18:50 | UC ---
Complaint Female HPI - HPI Summary HPI Summary: Pt presents with urinary frequency, pressure, and burning for the last 3 days. She had a UTI about a year ago and felt the same. Denies flank pain, fever, chills, pelvic pain, vaginal discharge or bleeding. - History Of Current Complaint Chief Complaint: UCGU Stated Complaint: PAINFUL URINATION Time Seen by Provider: 07/21/17 18:49 Hx Obtained From: Patient Hx Last Menstrual Period: 07/16/2017 Onset/Duration: Gradual Onset Severity Initially: Moderate Severity Currently: Moderate Pain Intensity: 8 Pain Scale Used: 0-10 Numeric Character: Burning - Allergies/Home Medications Allergies/Adverse Reactions: Allergies Allergy/AdvReac Type Severity Reaction Status Date / Time MS Lamotrigine Allergy Intermediate Rash Verified 06/24/17 09:51 [From Lamictal] ROBITUSSIN WITH CODEINE Allergy Severe Itching Uncoded 06/24/17 09:51 PMH/Surg Hx/FS Hx/Imm Hx Endocrine History: Diabetes, Hypothyroidism Psychological History: Bipolar Disorder Other History Of: Negative For: HIV, Hepatitis B, Hepatitis C, Anticoagulant Therapy - Surgical History Surgical History: Yes Surgery Procedure, Year, and Place: RIGHT Carpal Tunnel Surgery 09[place] [facility] [place]B Tendon[place] [facility] [place] RT THUMB Tendonitis 2005 [place]. Cyst removed left 2nd finger Feb 2015. Exploratory laparoscopy 2001. Sinus surgery 10[place] [facility] [place] - Family History Known Family History: Positive: Diabetes Negative: Cardiac Disease, Hypertension - Social History Lives: With Family Alcohol Use: Occasionally Alcohol Amount: 1x month Substance Use Type: None Smoking Status (MU): Current Some Day Smoker Type: Cigarettes Amount Used/How Often: 1/2 ppd FOR 8YRS Length of Time of Smoking/Using Tobacco: 2 YRS Have You Smoked in the Last Year: No When Did the Patient Quit Smoking/Using Tobacco: 05/01 Household Exposure Type: Cigarettes Cessation Counseling: Counseled 3+Min - 10 Min - Immunization History Most Recent Influenza Vaccination: 2016 Most Recent Tetanus Shot: unknown Most Recent Pneumonia Vaccination: never Vaccination Up to Date: Yes Review of Systems Respiratory: Negative Cardiovascular: Negative Gastrointestinal: Negative Genitourinary: Dysuria, Frequency, Urgency Musculoskeletal: Negative Neurological: Negative Psychological: Negative All Other Systems Reviewed And Are Negative: Yes Physical Exam Triage Information Reviewed: Yes Appearance: Well-Appearing, No Pain Distress, Obese Vital Signs: Initial Vital Signs Temp 98.2 F 07/21/17 17:17 Pulse 102 07/21/17 17:17 Resp 16 07/21/17 17:17 BP 114/74 07/21/17 17:17 Pulse Ox 99 07/21/17 17:17 Vital Signs Reviewed: Yes Neck: Positive: Supple, Nontender, No Lymphadenopathy Respiratory: Positive: Lungs clear, Normal breath sounds, No respiratory distress, No accessory muscle use Cardiovascular: Positive: RRR, No Murmur, Pulses Normal Abdomen Description: Positive: Nontender, No Organomegaly, Soft. Negative: CVA Tenderness (R), CVA Tenderness (L), Distended, Guarding Bowel Sounds: Positive: Present Neurological: Positive: Alert Psychological: Positive: Age Appropriate Behavior Skin: Negative: rashes Complaint Female Dx - Course Course Of Treatment: 2+ Leuks and 1+ protein. Treat with macrobid BID for 5 days. Call if culture needs changing - Differential Dx/Diagnosis Provider Diagnoses: UTI Discharge - Discharge Plan Condition: Stable Disposition: HOME Prescriptions: Fluconazole 100 MG TAB* [Diflucan 100 MG TAB*] 100 mg PO DAILY #1 tab Nitrofurantoin Macrocrystals* [Macrodantin*] 100 mg PO BID #10 cap Patient Education Materials: Urinary Tract Infection in Women (DC) Referrals: Gordo Kidd MD [Primary Care Provider] - Additional Instructions: If you develop a fever, shortness of breath, chest pain, new or worsening symptoms - please call your PCP or go to the ED.
--- NOTE | 2017-07-23 19:27 | UC ---
- Progress Note Progress Note: call patient to assure sx have resolved as culture does not show any bacterial growth--if has continued sx recheck with pcp or return
== END 2017-07-21 19:20 | disposition home or self-care (01) ==
LOC: UCEAST 16:51
DX: N39.0 Urinary tract infection, site not specified (principal); Z87.440 Personal history of urinary (tract) infections; E11.9 Type 2 diabetes mellitus without complications; E03.9 Hypothyroidism, unspecified; F31.9 Bipolar disorder, unspecified; Z71.6 Tobacco abuse counseling; F17.210 Nicotine dependence, cigarettes, uncomplicated; E66.9 Obesity, unspecified
CPT/HCPCS: 81003; 87086; 99212; G0463

== ENCOUNTER 2017-12-22 11:14 | Emergency (ER) | payer OTHER ==
[2017-12-22 11:36] VITALS: BP 134/97
--- NOTE | 2017-12-22 11:46 | UC ---
General HPI - HPI Summary HPI Summary: 27 yo female presents with 3 positive and 3 negative urine tests at home over the last week. Positives and negatives have been on different days. [facility] advised her to be seen here for an HCG blood test. Her LMP was 09/13/17. She has never been before. Denies fever, chills, abdominal pain, n/v/d/c, dysuria, or vaginal discharge/bleeding. - History of Current Complaint Chief Complaint: UCGeneralIllness Stated Complaint: WANTS TEST Time Seen by Provider: 12/22/17 11:35 Hx Obtained From: Patient Hx Last Menstrual Period: September 13, 2017 Current Severity: None Pain Intensity: 0 - Allergy/Home Medications Allergies/Adverse Reactions: Allergies Allergy/AdvReac Type Severity Reaction Status Date / Time lamotrigine [From Lamictal] Allergy Rash Verified 12/22/17 11:29 ROBITUSSIN WITH CODEINE Allergy Severe Itching Uncoded 12/22/17 11:29 PMH/Surg Hx/FS Hx/Imm Hx Endocrine History: Diabetes, Hypothyroidism Psychological History: Bipolar Disorder Other History Of: Negative For: HIV, Hepatitis B, Hepatitis C, Anticoagulant Therapy - Surgical History Surgical History: Yes Surgery Procedure, Year, and Place: RIGHT Carpal Tunnel Surgery 09/2011 [facility] [place]. RT THUMB Tendonitis 2004 [facility] [place]. RT THUMB Tendonitis 2005 [facility]. Cyst removed left 2nd finger Feb 2015. Exploratory laparoscopy 2001. Sinus surgery 10/2016 [facility] [place]. Lap karen 06/2017 - Family History Known Family History: Positive: Diabetes Negative: Cardiac Disease, Hypertension - Social History Occupation: Employed Full-time Lives: With Family Alcohol Use: Rare Alcohol Amount: 1x month Substance Use Type: None Smoking Status (MU): Current Some Day Smoker Type: Cigarettes Amount Used/How Often: 1/2 ppd FOR 8YRS Length of Time of Smoking/Using Tobacco: 2 YRS Have You Smoked in the Last Year: No When Did the Patient Quit Smoking/Using Tobacco: 05/01 Household Exposure Type: Cigarettes - Immunization History Most Recent Influenza Vaccination: 2015 Most Recent Tetanus Shot: unknown Most Recent Pneumonia Vaccination: never Vaccination Up to Date: Yes Review of Systems Constitutional: Negative Skin: Negative Respiratory: Negative Cardiovascular: Negative Gastrointestinal: Negative Neurovascular: Negative Neurological: Negative Psychological: Negative All Other Systems Reviewed And Are Negative: Yes Physical Exam - Summary Physical Exam Summary: GENERAL: NAD. WDWN. No pain distress. SKIN: No rashes, sores, lesions, or open wounds. NECK: Supple. Nontender. No lymphadenopathy. CHEST: CTAB. No r/r/w. No accessory muscle use. Breathing comfortably and in no distress. CV: RRR. Without m/r/g. Pulses intact. Brisk cap refill. ABDOMEN: Soft. NTTP. No distention or guarding. No organomegaly. No CVA tenderness. Bowel sounds present NEURO: Alert. CN II-XII grossly intact. PSYCH: Age appropriate behavior. Triage Information Reviewed: Yes Vital Signs: Initial Vital Signs Temp 97.9 F 12/22/17 11:31 Pulse 79 12/22/17 11:31 Resp 18 12/22/17 11:31 BP 134/97 12/22/17 11:31 Pulse Ox 98 12/22/17 11:31 Course/Dx - Course Course Of Treatment: Urine HCG was negative here. Will draw HCG blood and call her with results. - Differential Dx - Multi-Symptom Provider Diagnoses: Positive at home test Discharge - Sign-Out/Discharge Documenting (check all that apply): Patient Departure - Discharge Plan Condition: Stable Disposition: HOME Referrals: Gordo Kidd MD [Primary Care Provider] - Additional Instructions: If you develop a fever, shortness of breath, chest pain, new or worsening symptoms - please call your PCP or go to the ED. Your blood pressure was high at todays visit. Please see your primary provider within 4 weeks for recheck and re-evaluation. - Billing Disposition and Condition Condition: STABLE Disposition: Home
== END 2017-12-22 12:00 | disposition home or self-care (01) ==
LOC: UCEAST 11:14
DX: Z32.01 Encounter for pregnancy test, result positive (principal); F17.210 Nicotine dependence, cigarettes, uncomplicated; E11.9 Type 2 diabetes mellitus without complications; F31.9 Bipolar disorder, unspecified
CPT/HCPCS: 36415; 84702; 99211; G0463

== ENCOUNTER 2018-06-17 21:20 | Emergency (ER) | payer OTHER ==
--- NOTE | 2018-06-17 21:34 | UC ---
Lower Extremity/Ankle HPI - HPI Summary HPI Summary: Pt c/o 1 wk of L ankle pain. Prior to this in 2010 she has fractured her L ankl.e Since then no issues aside from a week ago. She does walk a lot for work. denies swelling, redness, change in ROM, fever, bruising. - History of Current Complaint Chief Complaint: UCLowerExtremity Stated Complaint: LEFT ANKLE INJURY Time Seen by Provider: 06/17/18 21:23 Hx Obtained From: Patient Hx Last Menstrual Period: September 13, 2017 Onset/Duration: Gradual Onset - 1 wk Severity Initially: Moderate Severity Currently: Mild Aggravating Factor(s): Standing Alleviating Factor(s): Rest, Other - naproxen Able to Bear Weight: Yes - Allergies/Home Medications Allergies/Adverse Reactions: Allergies Allergy/AdvReac Type Severity Reaction Status Date / Time lamotrigine [From Lamictal] Allergy Rash Verified 06/17/18 21:36 ROBITUSSIN WITH CODEINE Allergy Severe Itching Uncoded 06/17/18 21:36 Home Medications: Home Medications OLANzapine TAB* [Zyprexa 5 MG TAB*] 5 mg PO DAILY 06/17/18 [History Confirmed ] Sertraline* [Zoloft*] 25 mg PO DAILY 06/17/18 [History Confirmed 06/17/18] PMH/Surg Hx/FS Hx/Imm Hx Previously Healthy: Yes Endocrine History: Diabetes, Thyroid Disease Psychological History: Depression Other History Of: Negative For: HIV, Hepatitis B, Hepatitis C, Anticoagulant Therapy - Surgical History Surgical History: Yes Surgery Procedure, Year, and Place: RIGHT Carpal Tunnel Surgery 09/2011 [facility]. RT THUMB Tendonitis 2004 [facility]. RT THUMB Tendonitis 2005 [facility]. Cyst removed left 2nd finger Feb 2015. Exploratory laparoscopy 2001. Sinus surgery 10/2016 [facility]. Lap karen 06/2017 - Family History Known Family History: Positive: Diabetes Negative: Cardiac Disease, Hypertension - Social History Alcohol Use: Rare Alcohol Amount: 1x month Substance Use Type: None Smoking Status (MU): Current Some Day Smoker Type: Cigarettes Amount Used/How Often: 1/2 ppd FOR 8YRS Length of Time of Smoking/Using Tobacco: 2 YRS Have You Smoked in the Last Year: No When Did the Patient Quit Smoking/Using Tobacco: 05/01 Household Exposure Type: Cigarettes - Immunization History Most Recent Influenza Vaccination: 2016 Most Recent Tetanus Shot: unknown Most Recent Pneumonia Vaccination: never Vaccination Up to Date: Yes Review of Systems All Other Systems Reviewed And Are Negative: Yes Constitutional: Positive: Negative Skin: Negative: Bruising Musculoskeletal: Positive: Arthralgia, Edema. Negative: Myalgia Physical Exam Triage Information Reviewed: Yes Appearance: Well-Appearing Musculoskeletal: Positive: Strength Intact - L ankle., ROM Intact - L ankle., No Edema - L ankle., Other: - able to stand on her toes on L foot. L knee unremarkable. NL gait. Neurological: Positive: Alert Skin: Positive: Other - No bruising noted on L ankle. Lower Extremity Course/Dx - Course Course Of Treatment: L ankle pain x 1 wk w/ no injury or event. hx of fracture in L ankle in 2010 but this is noncontributory at this point. Exam was unremarkable. Have wrapped it during visit and gave a day of rest. She should f/u w/ pcp if not improving. - Differential Dx/Diagnosis Differential Diagnosis/HQI/PQRI: Arthritis, Contusion, Dislocation Provider Diagnosis: Ankle pain Discharge - Sign-Out/Discharge Documenting (check all that apply): Patient Departure All imaging exams completed and their final reports reviewed: No Studies - Discharge Plan Condition: Good Disposition: HOME Patient Education Materials: Arthralgia (ED) Forms: *Work Release Referrals: Gordo Kidd MD [Primary Care Provider] - Additional Instructions: If no improvement please follow up with your pcp. - Billing Disposition and Condition Condition: GOOD Disposition: Home
[2018-06-17 21:35] VITALS: BP 135/91
== END 2018-06-17 21:48 | disposition home or self-care (01) ==
LOC: UCCORT 21:20
DX: M25.572 Pain in left ankle and joints of left foot (principal); Z88.8 Allergy status to other drugs, medicaments and biological substances; E11.9 Type 2 diabetes mellitus without complications; Z87.891 Personal history of nicotine dependence; Z87.81 Personal history of (healed) traumatic fracture
CPT/HCPCS: 99211; G0463

== ENCOUNTER 2018-06-19 09:13 | Emergency (ER) | payer OTHER ==
[2018-06-19 09:31] VITALS: BP 127/90
--- NOTE | 2018-06-19 09:38 | UC ---
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 Has mild discoloration inferior to the lateral malleolus, but no history of trauma. Tends to sit with her left ankle tucked under her right leg. Using naproxen without much relief, has been using an RADHA wrap, has not used ice. - History of Current Complaint Stated Complaint: ANKLE PAIN Time Seen by Provider: 06/19/18 09:23 Hx Obtained From: Patient Hx Last Menstrual Period: 06/07/18 Onset/Duration: Gradual Onset, Lasting Weeks - 1 Severity Initially: Moderate Severity Currently: Moderate Pain Intensity: 9 Aggravating Factor(s): Standing, Ambulation Alleviating Factor(s): Rest Able to Bear Weight: Yes - Risk Factors Gout Risk Factors: Obesity DVT Risk Factors: Negative Septic Arthritis Risk Factor: Negative - Allergies/Home Medications Allergies/Adverse Reactions: Allergies Allergy/AdvReac Type Severity Reaction Status Date / Time lamotrigine [From Lamictal] Allergy Rash Verified 06/19/18 09:31 ROBITUSSIN WITH CODEINE Allergy Severe Itching Uncoded 06/19/18 09:31 PMH/Surg Hx/FS Hx/Imm Hx Endocrine History: Hypothyroidism, Other - PCOS, takes metformin Respiratory History: Other Other Respiratory History: Sleep apnea syndrome. Psychological History: Depression, Bipolar Disorder Other History Of: Negative For: HIV, Hepatitis B, Hepatitis C, Anticoagulant Therapy - Surgical History Surgical History: Yes Surgery Procedure, Year, and Place: RIGHT Carpal T[place] [facility] [place] [facility] [place] Tendonitis 2005 [facility]. Cyst removed left 2nd finger Feb 2015. Exploratory laparoscopy 2001. [place]us surgery 10[place] [facility] [place] Lap karen 06/2017 - Family History Known Family History: Positive: Diabetes Negative: Cardiac Disease, Hypertension - Social History Occupation: Employed Full-time - INCLUSION MANAGER Alcohol Use: Occasionally Alcohol Amount: 1x month Substance Use Type: None Smoking Status (MU): Light Every Day Tobacco Smoker Type: Cigarettes Amount Used/How Often: 5-6 sig/day Length of Time of Smoking/Using Tobacco: 2 YRS Have You Smoked in the Last Year: No When Did the Patient Quit Smoking/Using Tobacco: 05/01 Household Exposure Type: Cigarettes - Immunization History Most Recent Influenza Vaccination: 2016 Most Recent Tetanus Shot: unknown Most Recent Pneumonia Vaccination: never Vaccination Up to Date: Yes Review of Systems All Other Systems Reviewed And Are Negative: Yes Constitutional: Positive: Negative Skin: Positive: Negative Eyes: Positive: Negative ENT: Positive: Negative Respiratory: Positive: Negative Cardiovascular: Positive: Negative Gastrointestinal: Positive: Negative Genitourinary: Positive: Negative Motor: Positive: Negative Neurovascular: Positive: Negative Musculoskeletal: Positive: Arthralgia Neurological: Positive: Headache - gets occasional Psychological: Positive: Negative Is Patient Immunocompromised?: No Physical Exam Triage Information Reviewed: Yes Appearance: Well-Appearing, Pain Distress - mild to moderate, Obese Vital Signs: Initial Vital Signs Temp 98.6 F 06/19/18 09:25 Pulse 100 06/19/18 09:25 Resp 14 06/19/18 09:25 BP 127/90 06/19/18 09:25 Pulse Ox 98 06/19/18 09:25 ENT: Positive: Pharynx normal Neck: Positive: Supple, Nontender, No Lymphadenopathy Respiratory: Positive: Lungs clear, Normal breath sounds Cardiovascular: Positive: RRR, No Murmur Musculoskeletal Exam: Other - very mild bruising and minimal swelling of the left foot, inferior to the left lateral malleolus. Tender distal fibula, mild tenderness of the Achilles tendon. Musculoskeletal: Positive: Strength Intact, No Edema, ROM Limited @ - mild restriction of dorsiflexion Neurological: Positive: Alert, Muscle Tone Normal Psychological Exam: Normal Skin Exam: Other - faint ecchymotic area over the proximal foot, inferior to the lateral malleolus, over approx 6 cm area. Minimal swelling. Diagnostics - Laboratory Diagnostic Studies Completed/Ordered: Per MH, left ankle with normal joint space , no fracture seen. Lower Extremity Course/Dx - Course Course Of Treatment: RADHA wrap, continue naproxen, add acetaminophen for pain control. - Differential Dx/Diagnosis Differential Diagnosis/HQI/PQRI: Contusion, Strain Provider Diagnosis: Strain of left ankle Discharge - Sign-Out/Discharge Documenting (check all that apply): Patient Departure All imaging exams completed and their final reports reviewed: No - Discharge Plan Condition: Stable Disposition: HOME Patient Education Materials: Ankle Strain (ED) Forms: *Work Release Referrals: Gordo Kidd MD [Primary Care Provider] - Additional Instructions: Ensure that you are keeping your ankle elevated, and use ice for 15 to 20 minutes every 2 to 3 hours to relieve swelling. Add acetaminophen 1000 mg ever 8 hours to improve control of pain. Continue use of RADHA wrap. Follow up with your primary care physician if pain does not resolve. - Billing Disposition and Condition Condition: STABLE Disposition: Home
--- NOTE | 2018-06-19 12:42 | UC ---
- Progress Note Progress Note: Reviewed radiology read, confirming no fracture, but documenting presence of medial varicose veins seen on imaging. This is not the area of focal tenderness. Nursing staff has left a voice message for Ladan, asking that she call in to review the report. Course/Dx - Diagnoses Provider Diagnoses: Strain of left ankle Discharge - Sign-Out/Discharge Documenting (check all that apply): Patient Departure All imaging exams completed and their final reports reviewed: No - Discharge Plan Condition: Stable Disposition: HOME Patient Education Materials: Ankle Strain (ED) Forms: *Work Release Referrals: Gordo Kidd MD [Primary Care Provider] - Additional Instructions: Ensure that you are keeping your ankle elevated, and use ice for 15 to 20 minutes every 2 to 3 hours to relieve swelling. Add acetaminophen 1000 mg ever 8 hours to improve control of pain. Continue use of RADHA wrap. Follow up with your primary care physician if pain does not resolve. - Billing Disposition and Condition Condition: STABLE Disposition: Home
== END 2018-06-19 10:38 | disposition home or self-care (01) ==
LOC: UCEAST 09:13
DX: S96.912A Strain of unspecified muscle and tendon at ankle and foot level, left foot, initial encounter (principal); F17.210 Nicotine dependence, cigarettes, uncomplicated; Z88.8 Allergy status to other drugs, medicaments and biological substances; X58.XXXA Exposure to other specified factors, initial encounter; Y92.9 Unspecified place or not applicable
CPT/HCPCS: 99212; G0463